=== PATIENT | male | born 1935 | race Two or more races ===

== ENCOUNTER 2021-04-11 04:04 | Inpatient (IN) | payer OTHER, MEDICAID ==
[~2021-04-11] VITALS: Ht 175.3 cm; Wt 85.9 kg
[2021-04-11 04:53] LABS: Basophils # (auto) 0 10 ^3/uL (0-0.2); Eosinophils # (auto) 0.1 10 ^3/uL (0-0.8); Eosinophils % (auto) 0.6 % (0.0-7.0); Mean Corpuscular Hgb Conc. 34.8 g/dL (32.0-36.0); Nucleated Red Blood Cells % 0.1 %; Red Cell Distribution Width 14.3 % (11.8-14.3)
[2021-04-11 04:56] LABS: Basophils % (auto) 0.4 % (0.0-2.0); Hematocrit 18.7 % (41.0-53.0); Lymphocytes % (auto) 32.8 % (10.0-50.0); Mean Corpuscular Hemoglobin 34.2 pg (28.0-32.0); Mean Corpuscular Volume 98.2 fL (80.0-100.0); Monocytes # (auto) 0.6 10 ^3/uL (0-1.3); Monocytes % (auto) 6.7 % (0.0-12.0); Neutrophils # (auto) 5.5 10 ^3/uL (1.6-8.6); Neutrophils % (auto) 59.5 % (37.0-80.0); Red Blood Cells 1.91 10^6/uL (4.5-5.90); White Blood Cell 9.2 10^3/uL (4.4-10.8)
[2021-04-11 05:06] LABS: Hemoglobin 6.5 g/dL (13.5-17.5)
[2021-04-11] MEDS ORDERED: SODIUM CHLORIDE 0.9% 1,000 ML IV ONE ×2 (05:15→12:30)
[2021-04-11 05:33] LABS: Alanine Aminotransferase 9 U/L (16-61); Albumin 1.7 g/dL (3.4-5.0); Anion Gap 7 (5-15); Aspartate Aminotransferase 15 U/L (15-37); BUN/Creatinine Ratio 22.2; Blood Urea Nitrogen 42 mg/dL (7-18); Calcium 7.4 mg/dL (8.5-10.1); Carbon Dioxide 22 mmol/L (21-32); Chloride 107 mmol/L (98-107); GFR African American 44 mL/min; GFR Non-African American 36 mL/min; Glucose 208 mg/dL (74-106); Potassium 4.3 mmol/L (3.5-5.1); Sodium 136 mmol/L (136-145)
[2021-04-11 05:38] LABS: Alkaline Phosphatase 64 U/L (45-117); Bilirubin, Total 0.3 mg/dL (0.2-1.0); Total Protein 5.5 g/dL (6.4-8.2)
[2021-04-11 08:15] VITALS: BP 117/63
[2021-04-11 09:04] VITALS: BP 133/74
[2021-04-11 09:30] VITALS: BP 125/71
[2021-04-11 10:15] VITALS: BP 152/86
[2021-04-11 10:54] LABS: Urine Bacteria NONE SEEN /hpf (None Seen); Urine Blood Negative /uL (Negative); Urine Specific Gravity 1.016 (1.001-1.035); Urine WBC 2 /hpf (0 - 3)
[2021-04-11] MEDS ORDERED: SODIUM CHLORIDE 0.9% 500 ML IVB ONE (12:30)
[2021-04-11 13:16] LABS: Magnesium 1.9 mg/dL (1.6-2.6)
[2021-04-11 13:22] LABS: INR 1.27 (0.9-1.15); Partial Thromboplastin Time 27.1 sec (23.6-33.0)
[2021-04-11] MEDS ORDERED: MORPHINE SULFATE INJECTION 2 MG/ML SYRG IV PRN (15:30)
[2021-04-11] MEDS ORDERED: PANTOPRAZOLE 40 MG/10 ML VIAL INJ IV ONE (15:30)
[2021-04-11] MEDS ORDERED: LACTULOSE 20Gm/30ML SOLN PO PRN (15:30)
[2021-04-11] MEDS ORDERED: ONDANSETRON HCL 4 MG/2 ML VIAL IV PRN (15:30)
[2021-04-11] MEDS ORDERED: phytonadione 2.5 MG in SODIUM CHL 0.9% 50 ML IV ONE (15:30)
[2021-04-11] MEDS ORDERED: DEXTROSE (50%) 50ML SYRG IV PRN (15:30)
[2021-04-11] MEDS ORDERED: ACETAMINOPHEN 500 MG TAB PO PRN (15:30)
[2021-04-11] MEDS ORDERED: NITROGLYCERIN 0.4 MG SL TAB SL PRN (15:30)
[2021-04-11 15:46] LABS: Hematocrit 27.6 % (41.0-53.0); Hemoglobin 9.4 g/dL (13.5-17.5)
[2021-04-11] MEDS: ACCU-CHEK COMFORT CURVE STRIP VI SCH ×2 (16:43→22:25)
[2021-04-11] MEDS: InsuLIN REG 1unit/0.01ml Soln (100units/ml) SC SCH ×2 (16:43→22:25)
[2021-04-11] MEDS: SODIUM CHLORIDE 0.9% 1,000 ML IV SCH ×2 (16:44→23:42)
[2021-04-11 19:17] LABS: Hematocrit 28.4 % (41.0-53.0); Hemoglobin 9.8 g/dL (13.5-17.5)
[2021-04-11] MEDS: PANTOPRAZOLE 40 MG/10 ML VIAL INJ IV SCH (22:25)
[2021-04-12 01:35] LABS: Hematocrit 25.5 % (41.0-53.0); Hemoglobin 9.1 g/dL (13.5-17.5)
[2021-04-12] MEDS: InsuLIN REG 1unit/0.01ml Soln (100units/ml) SC SCH ×4 (06:34→22:00)
[2021-04-12] MEDS: ACCU-CHEK COMFORT CURVE STRIP VI SCH ×4 (06:34→23:02)
[2021-04-12 07:01] LABS: Basophils # (auto) 0 10 ^3/uL (0-0.2); Basophils % (auto) 0.4 % (0.0-2.0); Eosinophils # (auto) 0.1 10 ^3/uL (0-0.8); Eosinophils % (auto) 0.9 % (0.0-7.0); Hematocrit 26.4 % (41.0-53.0); Hemoglobin 9.3 g/dL (13.5-17.5); Lymphocytes # (auto) 1.4 10 ^3/uL (0.4-5.4); Lymphocytes % (auto) 17.1 % (10.0-50.0); Mean Corpuscular Hemoglobin 32.7 pg (28.0-32.0); Mean Corpuscular Hgb Conc. 35.2 g/dL (32.0-36.0); Mean Corpuscular Volume 92.9 fL (80.0-100.0); Monocytes # (auto) 0.5 10 ^3/uL (0-1.3); Monocytes % (auto) 6.1 % (0.0-12.0); Neutrophils # (auto) 6.4 10 ^3/uL (1.6-8.6); Neutrophils % (auto) 75.5 % (37.0-80.0); Nucleated Red Blood Cells % 0.1 %; Red Blood Cells 2.84 10^6/uL (4.5-5.90); Red Cell Distribution Width 16.2 % (11.8-14.3); White Blood Cell 8.5 10^3/uL (4.4-10.8)
[2021-04-12 07:23] LABS: Calcium 8.2 mg/dL (8.5-10.1); Potassium 4.8 mmol/L (3.5-5.1)
[2021-04-12] MEDS: SODIUM CHLORIDE 0.9% 1,000 ML IV SCH (07:30)
[2021-04-12 07:32] LABS: BUN/Creatinine Ratio 38.3; Bilirubin, Total 0.4 mg/dL (0.2-1.0)
[2021-04-12] MEDS: PANTOPRAZOLE 40 MG/10 ML VIAL INJ IV SCH ×2 (10:01→23:01)
[2021-04-12] MEDS: SOD CHL 0.45% 1,000 ML IV SCH ×2 (10:19→23:02)
[2021-04-12] MEDS ORDERED: LABETALOL HCL 5 MG/ML 4ML SYRINGE IV PRN (11:00)
[2021-04-12 16:00] VITALS: BP 154/57
[2021-04-12 17:00] VITALS: BP 156/89
[2021-04-12] MEDS: SUCRALFATE 1 GM/10 ML ORAL SUSP PO SCH ×2 (18:38→23:02)
[2021-04-12 22:00] VITALS: BP 126/92
[2021-04-13 05:00] VITALS: BP 116/76
[2021-04-13 05:57] LABS: Basophils # (auto) 0 10 ^3/uL (0-0.2); Eosinophils # (auto) 0.1 10 ^3/uL (0-0.8); Eosinophils % (auto) 1.3 % (0.0-7.0); Lymphocytes # (auto) 1.1 10 ^3/uL (0.4-5.4); Monocytes # (auto) 0.4 10 ^3/uL (0-1.3)
[2021-04-13 06:00] LABS: Basophils % (auto) 0.4 % (0.0-2.0); Hemoglobin 8.1 g/dL (13.5-17.5); Lymphocytes % (auto) 19.5 % (10.0-50.0); Mean Corpuscular Hemoglobin 32.9 pg (28.0-32.0); Mean Corpuscular Hgb Conc. 35.3 g/dL (32.0-36.0); Mean Corpuscular Volume 93.3 fL (80.0-100.0); Monocytes % (auto) 6.6 % (0.0-12.0); Neutrophils % (auto) 72.2 % (37.0-80.0); Red Blood Cells 2.47 10^6/uL (4.5-5.90); Red Cell Distribution Width 15.6 % (11.8-14.3); White Blood Cell 5.6 10^3/uL (4.4-10.8)
[2021-04-13] MEDS: ACCU-CHEK COMFORT CURVE STRIP VI SCH ×2 (06:10→12:48)
[2021-04-13] MEDS: InsuLIN REG 1unit/0.01ml Soln (100units/ml) SC SCH ×2 (06:10→11:30)
[2021-04-13] MEDS: SUCRALFATE 1 GM/10 ML ORAL SUSP PO SCH ×4 (06:10→21:00)
[2021-04-13 07:02] LABS: Potassium 3.9 mmol/L (3.5-5.1)
[2021-04-13 07:05] LABS: BUN/Creatinine Ratio 34.8
[2021-04-13] MEDS ORDERED: LIDOCAINE VISCOUS 2% 15ML UD ONE (08:34)
[2021-04-13] MEDS ORDERED: SODIUM CHLORIDE LOCK 10 ML ONE (08:34)
[2021-04-13] MEDS ORDERED: fentaNYL CITRATE 100 MCG/2 ML VL ONE (08:35)
[2021-04-13] MEDS ORDERED: diphenhdrAMINE HCL 50 MG/1 ML VL ONE (08:35)
[2021-04-13] MEDS ORDERED: MIDAZOLAM HCL 5 MG/ML-1ML VIAL ONE (08:35)
[2021-04-13 09:00] VITALS: BP 122/61
[2021-04-13] MEDS: PANTOPRAZOLE 40 MG/10 ML VIAL INJ IV SCH ×2 (09:44→21:00)
[2021-04-13] MEDS: SOD CHL 0.45% 1,000 ML IV SCH ×2 (12:49→15:01)
[2021-04-13 13:00] VITALS: BP 125/69
[2021-04-13 17:00] VITALS: BP 110/66
[2021-04-13 22:00] VITALS: BP 138/67
[2021-04-14 05:00] VITALS: BP 125/67
[2021-04-14 05:49] LABS: Hemoglobin 7.6 g/dL (13.5-17.5)
[2021-04-14 05:53] LABS: Hematocrit 21.4 % (41.0-53.0)
[2021-04-14] MEDS: SUCRALFATE 1 GM/10 ML ORAL SUSP PO SCH ×3 (06:05→17:44)
[2021-04-14] MEDS: SOD CHL 0.45% 1,000 ML IV SCH (06:06)
[2021-04-14 06:36] LABS: Calcium 7.9 mg/dL (8.5-10.1)
[2021-04-14] MEDS: PANTOPRAZOLE 40 MG/10 ML VIAL INJ IV SCH (09:36)
[2021-04-14] MEDS ORDERED: PANT40TA2 PO (12:59)
[2021-04-14] MEDS ORDERED: SUCR1TAB22 PO (12:59)
[2021-04-14] MEDS ORDERED: GEMF-19 PO (13:23)
[2021-04-14] MEDS ORDERED: VALS80TA44 PO (13:23)
[2021-04-14] MEDS ORDERED: SITA100T7 PO (13:23)
[2021-04-14 13:47] LABS: Hemoglobin 7.7 g/dL (13.5-17.5)
[2021-04-14 13:49] LABS: Hematocrit 22.3 % (41.0-53.0)
[2021-04-14 14:55] VITALS: BP 113/65
== END 2021-04-14 20:27 | disposition home health service (06) | DRG 377 ==
LOC: ER 04:04 → EDBD 04:04 → TELE 15:25 → TELE-WESTW 04-12 15:01
PROVIDERS: ADMIT Internal Medicine; ATTEND Internal Medicine
PROC: 30233N1 Transfusion of Nonautologous Red Blood Cells into Peripheral Vein, Percutaneous Approach (ICD-10-PCS; principal; 2021-04-11)
PROC: 0D9670Z Drainage of Stomach with Drainage Device, Via Natural or Artificial Opening (ICD-10-PCS; 2021-04-11)
PROC: 0DB68ZX Excision of Stomach, Via Natural or Artificial Opening Endoscopic, Diagnostic (ICD-10-PCS; 2021-04-13)
DX: K25.4 Chronic or unspecified gastric ulcer with hemorrhage (principal); N17.0 Acute kidney failure with tubular necrosis; D68.9 Coagulation defect, unspecified; D62 Acute posthemorrhagic anemia; K29.71 Gastritis, unspecified, with bleeding; I95.9 Hypotension, unspecified; N18.32 Chronic kidney disease, stage 3b; E78.5 Hyperlipidemia, unspecified; Z20.822 Contact with and (suspected) exposure to COVID-19; K20.90 Esophagitis, unspecified without bleeding; E86.0 Dehydration; I12.9 Hypertensive chronic kidney disease with stage 1 through stage 4 chronic kidney disease, or unspecified chronic kidney disease; E88.09 Other disorders of plasma-protein metabolism, not elsewhere classified; Z86.718 Personal history of other venous thrombosis and embolism
CPT/HCPCS: 36415; 43239; 71045; 74176; 80048; 80053; 80061; 81001; 82306; 82378; 82962; 83036; 83690; 83735; 84443; 84484; 85014; 85018; 85025; 85045; 85610; 85730; 86850; 86900; 86901; 86920; 87426; 93005; 96360; 96361; 97163; C9113; G0378; J1815; J2250; J3430; J3490

== ENCOUNTER 2021-04-15 21:07 | Inpatient (IN) | payer OTHER, MEDICAID ==
[~2021-04-15] VITALS: Ht 167.6 cm; Wt 77.2 kg
[~2021-04-15 21:07] MED LIST: GEMF-19 PO; PANT40TA2 PO; SITA100T7 PO; SUCR1TAB22 PO; VALS80TA44 PO
[2021-04-15] MEDS ORDERED: SODIUM CHLORIDE 0.9% 1,000 ML IV ONE (22:15)
[2021-04-15 22:25] LABS: Basophils # (auto) 0 10 ^3/uL (0-0.2); Eosinophils # (auto) 0.1 10 ^3/uL (0-0.8); Hematocrit 18.6 % (41.0-53.0); Lymphocytes # (auto) 1.2 10 ^3/uL (0.4-5.4); Monocytes # (auto) 0.5 10 ^3/uL (0-1.3)
[2021-04-15 22:26] LABS: Basophils % (auto) 0.6 % (0.0-2.0); Lymphocytes % (auto) 17.1 % (10.0-50.0); Mean Corpuscular Hemoglobin 32.8 pg (28.0-32.0); Mean Corpuscular Hgb Conc. 34.3 g/dL (32.0-36.0); Mean Corpuscular Volume 95.4 fL (80.0-100.0); Neutrophils % (auto) 74.3 % (37.0-80.0); Red Blood Cells 1.95 10^6/uL (4.5-5.90); Red Cell Distribution Width 15.7 % (11.8-14.3); White Blood Cell 6.8 10^3/uL (4.4-10.8)
[2021-04-15 22:34] LABS: Hemoglobin 6.4 g/dL (13.5-17.5)
[2021-04-15 22:40] LABS: INR 1.17 (0.9-1.15); Partial Thromboplastin Time 27.9 sec (23.6-33.0)
[2021-04-15 22:56] LABS: Albumin 1.6 g/dL (3.4-5.0); BUN/Creatinine Ratio 20.3; Calcium 7.3 mg/dL (8.5-10.1); Potassium 4.2 mmol/L (3.5-5.1)
[2021-04-15 23:35] LABS: Bilirubin, Total 0.2 mg/dL (0.2-1.0); Total Protein 5.1 g/dL (6.4-8.2)
[2021-04-16] VITALS (11 sets, daily range): BP systolic 77–135; BP diastolic 39–63
[2021-04-16] MEDS ORDERED: NITROGLYCERIN 0.4 MG SL TAB SL PRN (01:00)
[2021-04-16] MEDS ORDERED: MORPHINE SULFATE 4 MG/ML SYR/VIAL IV PRN (01:00)
[2021-04-16] MEDS ORDERED: ACETAMINOPHEN 325 MG TAB PO PRN (01:00)
[2021-04-16] MEDS ORDERED: ONDANSETRON HCL 4 MG/2 ML VIAL IV PRN (01:00)
[2021-04-16] MEDS ORDERED: DOCUSATE SOD 100 MG CAP PO PRN (01:00)
[2021-04-16] MEDS ORDERED: DEXTROSE (50%) 50ML SYRG IV PRN (01:00)
[2021-04-16] MEDS ORDERED: SODIUM CHLORIDE 0.9% 1,000 ML IV SCH (01:00)
[2021-04-16] MEDS ORDERED: MORPHINE SULFATE INJECTION 2 MG/ML SYRG IV PRN (01:00)
[2021-04-16] MEDS ORDERED: ALBUMIN 25% 50 ML IV ONE (01:00)
[2021-04-16] MEDS ORDERED: FUROSEMIDE 20 MG/2 ML VIAL IV ONE (01:15)
[2021-04-16 05:17] LABS: Urine Bacteria FEW /hpf (None Seen); Urine Blood 2+ /uL (Negative); Urine Hyaline Cast FEW /lpf (0 - 2); Urine Specific Gravity 1.015 (1.001-1.035); Urine WBC 16 /hpf (0 - 3)
[2021-04-16] MEDS ORDERED: SODIUM CHLORIDE 0.9% 500 ML IV ONE (06:15)
[2021-04-16] MEDS: SODIUM CHLORIDE 0.9% 1,000 ML IV SCH ×2 (07:00→23:25)
[2021-04-16] MEDS: ACCU-CHEK COMFORT CURVE STRIP VI SCH ×4 (07:40→21:28)
[2021-04-16] MEDS: InsuLIN REG 1unit/0.01ml Soln (100units/ml) SC SCH ×4 (07:40→21:27)
[2021-04-16 08:23] LABS: Mean Corpuscular Volume 96.1 fL (80.0-100.0); White Blood Cell 8.6 10^3/uL (4.4-10.8)
[2021-04-16 08:24] LABS: Hematocrit 17.5 % (41.0-53.0); Mean Corpuscular Hemoglobin 33.4 pg (28.0-32.0); Mean Corpuscular Hgb Conc. 34.8 g/dL (32.0-36.0); Red Blood Cells 1.82 10^6/uL (4.5-5.90); Red Cell Distribution Width 15.4 % (11.8-14.3)
[2021-04-16 08:38] LABS: Albumin 1.4 g/dL (3.4-5.0); Calcium 6.6 mg/dL (8.5-10.1); Potassium 4.4 mmol/L (3.5-5.1)
[2021-04-16 08:42] LABS: BUN/Creatinine Ratio 25.4; Bilirubin, Total 0.5 mg/dL (0.2-1.0); Total Protein 4.3 g/dL (6.4-8.2)
[2021-04-16 08:50] LABS: Hemoglobin 6.1 g/dL (13.5-17.5)
[2021-04-16 08:52] LABS: Band Neutrophils % (manual) 0; Basophils % (manual) 0 (0.0-2.0); Blast Cells 0; Eosinophils % (manual) 0 (0-7); Metamyelocytes % 0; Myelocytes % 0; Promyelocytes % 0; Reactive Lymphocytes 0
[2021-04-16] MEDS ORDERED: FAMOTIDINE (10MG/ML) 2ML VL IV SCH (10:00)
[2021-04-16 11:11] LABS: Lymphocytes % (manual) 37 (10.0-50.0); Monocytes % (manual) 3 (0-12)
[2021-04-16] MEDS: ASCORBIC ACID 500 MG TAB PO SCH ×2 (11:42→21:27)
[2021-04-16] MEDS: ZINC SULFATE 220mg CAP or TAB PO SCH (11:42)
[2021-04-16] MEDS: MULTIPLE VITAMIN TAB PO SCH (11:42)
[2021-04-16] MEDS ORDERED: PANTOPRAZOLE 40 MG/10 ML VIAL INJ IV ONE (14:30)
[2021-04-16] MEDS ORDERED: GOLYTELY 4L KIT PO ONE (14:45)
[2021-04-16] MEDS: SUCRALFATE 1 GM TAB PO SCH ×2 (18:00→21:27)
[2021-04-16] MEDS: PANTOPRAZOLE 40 MG/10 ML VIAL INJ IV SCH (21:27)
[2021-04-16] MEDS ORDERED: ATORVASTATIN 20 MG TAB PO SCH (22:00)
[2021-04-17 04:00] LABS: Hematocrit 24.3 % (41.0-53.0); Hemoglobin 8.5 g/dL (13.5-17.5); Mean Corpuscular Hemoglobin 32.4 pg (28.0-32.0); Mean Corpuscular Hgb Conc. 34.9 g/dL (32.0-36.0); Mean Corpuscular Volume 92.8 fL (80.0-100.0); Red Blood Cells 2.62 10^6/uL (4.5-5.90); Red Cell Distribution Width 14.8 % (11.8-14.3); White Blood Cell 6.6 10^3/uL (4.4-10.8)
[2021-04-17 04:16] LABS: Albumin 1.6 g/dL (3.4-5.0); Calcium 7.3 mg/dL (8.5-10.1); Magnesium 1.7 mg/dL (1.6-2.6); Potassium 3.7 mmol/L (3.5-5.1)
[2021-04-17 04:23] LABS: BUN/Creatinine Ratio 34.6; Bilirubin, Total 0.6 mg/dL (0.2-1.0); Total Protein 4.8 g/dL (6.4-8.2)
[2021-04-17] MEDS: SUCRALFATE 1 GM TAB PO SCH ×4 (05:57→22:09)
[2021-04-17] MEDS ORDERED: GOLYTELY 4L KIT PO ONE (06:00)
[2021-04-17 06:13] LABS: Basophils % (manual) 0 (0.0-2.0); Blast Cells 0; Eosinophils % (manual) 0 (0-7); Metamyelocytes % 0; Myelocytes % 0; Promyelocytes % 0; Reactive Lymphocytes 0
[2021-04-17] MEDS: InsuLIN REG 1unit/0.01ml Soln (100units/ml) SC SCH ×4 (06:35→22:30)
[2021-04-17] MEDS: ACCU-CHEK COMFORT CURVE STRIP VI SCH ×4 (06:35→22:09)
[2021-04-17] MEDS: PANTOPRAZOLE 40 MG/10 ML VIAL INJ IV SCH ×2 (09:48→22:09)
[2021-04-17] MEDS: ASCORBIC ACID 500 MG TAB PO SCH (09:48)
[2021-04-17] MEDS: MULTIPLE VITAMIN TAB PO SCH (09:48)
[2021-04-17] MEDS: ZINC SULFATE 220mg CAP or TAB PO SCH (09:48)
[2021-04-17 10:56] LABS: Band Neutrophils % (manual) 5; Lymphocytes % (manual) 26 (10.0-50.0); Monocytes % (manual) 9 (0-12)
[2021-04-17] MEDS ORDERED: cefTRIAXone 1GM/50ML D5W 50 ML IV ONE (11:00)
[2021-04-17] MEDS ORDERED: diphenhdrAMINE HCL 50 MG/1 ML VL ONE (12:51)
[2021-04-17] MEDS ORDERED: SODIUM CHLORIDE LOCK 10 ML ONE (12:51)
[2021-04-17] MEDS ORDERED: LIDOCAINE VISCOUS 2% 15ML UD ONE (12:51)
[2021-04-17] MEDS: MIDAZOLAM HCL 5 MG/ML-1ML VIAL ONE ×2 (13:51→14:01)
[2021-04-17] MEDS: fentaNYL CITRATE 100 MCG/2 ML VL ONE ×2 (13:51→14:01)
[2021-04-17] MEDS: SODIUM CHLORIDE 0.9% 1,000 ML IV SCH (17:38)
[2021-04-17 18:36] LABS: Hemoglobin 7.4 g/dL (13.5-17.5)
[2021-04-17 18:37] LABS: Hematocrit 21.5 % (41.0-53.0)
[2021-04-17 22:00] VITALS: BP 125/69
[2021-04-18] VITALS (10 sets, daily range): BP systolic 109–144; BP diastolic 52–65
[2021-04-18] MEDS: ACCU-CHEK COMFORT CURVE STRIP VI SCH ×4 (06:07→20:52)
[2021-04-18] MEDS: SUCRALFATE 1 GM TAB PO SCH ×4 (06:07→20:52)
[2021-04-18] MEDS: InsuLIN REG 1unit/0.01ml Soln (100units/ml) SC SCH ×4 (06:11→21:08)
[2021-04-18 08:17] LABS: Hematocrit 18.7 % (41.0-53.0); Mean Corpuscular Hemoglobin 32.8 pg (28.0-32.0); Mean Corpuscular Hgb Conc. 34.7 g/dL (32.0-36.0); Mean Corpuscular Volume 94.6 fL (80.0-100.0); Red Blood Cells 1.98 10^6/uL (4.5-5.90); Red Cell Distribution Width 15.6 % (11.8-14.3); White Blood Cell 5.5 10^3/uL (4.4-10.8)
[2021-04-18 08:36] LABS: Calcium 7.5 mg/dL (8.5-10.1); Potassium 3.8 mmol/L (3.5-5.1)
[2021-04-18 08:39] LABS: BUN/Creatinine Ratio 43.6
[2021-04-18 08:55] LABS: Hemoglobin 6.5 g/dL (13.5-17.5)
[2021-04-18 08:57] LABS: Basophils % (manual) 0 (0.0-2.0); Blast Cells 0; Metamyelocytes % 0; Promyelocytes % 0; Reactive Lymphocytes 0
[2021-04-18] MEDS: PANTOPRAZOLE 40 MG/10 ML VIAL INJ IV SCH ×2 (09:26→20:52)
[2021-04-18] MEDS: SODIUM CHLORIDE 0.9% 1,000 ML IV SCH (09:26)
[2021-04-18] MEDS: ZINC SULFATE 220mg CAP or TAB PO SCH (09:27)
[2021-04-18] MEDS: MULTIPLE VITAMIN TAB PO SCH (09:27)
[2021-04-18] MEDS: HYDROcodone-ACET 5/325MG TAB PO PRN ×2 (09:35→16:25)
[2021-04-18 10:03] LABS: Band Neutrophils % (manual) 2; Eosinophils % (manual) 1 (0-7); Lymphocytes % (manual) 25 (10.0-50.0); Monocytes % (manual) 4 (0-12); Myelocytes % 1
[2021-04-18] MEDS: cefTRIAXone 1GM/50ML D5W 50 ML IV SCH (10:37)
[2021-04-19] MEDS: SODIUM CHLORIDE 0.9% 1,000 ML IV SCH (01:25)
[2021-04-19 05:33] VITALS: BP 154/70
[2021-04-19] MEDS: ACCU-CHEK COMFORT CURVE STRIP VI SCH ×4 (05:35→20:31)
[2021-04-19] MEDS: InsuLIN REG 1unit/0.01ml Soln (100units/ml) SC SCH ×4 (05:35→20:31)
[2021-04-19] MEDS: SUCRALFATE 1 GM TAB PO SCH ×4 (05:36→20:31)
[2021-04-19 06:39] LABS: Hematocrit 21.7 % (41.0-53.0); Hemoglobin 7.6 g/dL (13.5-17.5); Mean Corpuscular Hgb Conc. 35.2 g/dL (32.0-36.0); Red Blood Cells 2.32 10^6/uL (4.5-5.90); Red Cell Distribution Width 15.7 % (11.8-14.3); White Blood Cell 4.4 10^3/uL (4.4-10.8)
[2021-04-19 06:41] LABS: Mean Corpuscular Hemoglobin 32.8 pg (28.0-32.0); Mean Corpuscular Volume 93.4 fL (80.0-100.0)
[2021-04-19 06:45] LABS: Band Neutrophils % (manual) 0; Basophils % (manual) 0 (0.0-2.0); Blast Cells 0; Metamyelocytes % 0; Myelocytes % 0; Promyelocytes % 0; Reactive Lymphocytes 0
[2021-04-19 08:37] LABS: Eosinophils % (manual) 2 (0-7); Lymphocytes % (manual) 32 (10.0-50.0); Monocytes % (manual) 5 (0-12)
[2021-04-19 09:00] VITALS: BP 155/69
[2021-04-19] MEDS: PANTOPRAZOLE 40 MG/10 ML VIAL INJ IV SCH ×2 (09:44→20:31)
[2021-04-19] MEDS: MULTIPLE VITAMIN TAB PO SCH (09:44)
[2021-04-19] MEDS: ZINC SULFATE 220mg CAP or TAB PO SCH (09:44)
[2021-04-19] MEDS: cefTRIAXone 1GM/50ML D5W 50 ML IV SCH (09:44)
[2021-04-19] MEDS: HYDROcodone-ACET 5/325MG TAB PO PRN (11:35)
[2021-04-19 13:00] VITALS: BP 135/61
[2021-04-19 17:00] VITALS: BP 135/44
[2021-04-19 22:00] VITALS: BP 138/60
[2021-04-20 05:00] VITALS: BP 146/79
[2021-04-20] MEDS: SUCRALFATE 1 GM TAB PO SCH ×4 (05:51→22:03)
[2021-04-20] MEDS: ACCU-CHEK COMFORT CURVE STRIP VI SCH ×4 (05:51→22:03)
[2021-04-20 06:17] LABS: Hematocrit 21.2 % (41.0-53.0); Hemoglobin 7.5 g/dL (13.5-17.5); Mean Corpuscular Hgb Conc. 35.5 g/dL (32.0-36.0)
[2021-04-20 06:20] LABS: Mean Corpuscular Hemoglobin 33.4 pg (28.0-32.0); Red Blood Cells 2.26 10^6/uL (4.5-5.90); Red Cell Distribution Width 16.1 % (11.8-14.3); White Blood Cell 3.7 10^3/uL (4.4-10.8)
[2021-04-20 06:23] LABS: BUN/Creatinine Ratio 25.2; Calcium 7.9 mg/dL (8.5-10.1); Potassium 3.8 mmol/L (3.5-5.1)
[2021-04-20 06:30] LABS: INR 1.16 (0.9-1.15)
[2021-04-20 06:36] LABS: Basophils % (manual) 0 (0.0-2.0); Blast Cells 0; Promyelocytes % 0; Reactive Lymphocytes 0
[2021-04-20] MEDS: InsuLIN REG 1unit/0.01ml Soln (100units/ml) SC SCH ×4 (06:50→22:00)
[2021-04-20 07:54] LABS: Band Neutrophils % (manual) 2; Eosinophils % (manual) 4 (0-7); Lymphocytes % (manual) 31 (10.0-50.0); Metamyelocytes % 2; Monocytes % (manual) 7 (0-12); Myelocytes % 1
[2021-04-20 09:00] VITALS: BP 149/77
[2021-04-20] MEDS: cefTRIAXone 1GM/50ML D5W 50 ML IV SCH (09:00)
[2021-04-20] MEDS: MULTIPLE VITAMIN TAB PO SCH (09:41)
[2021-04-20] MEDS: PANTOPRAZOLE 40 MG/10 ML VIAL INJ IV SCH ×2 (09:41→22:03)
[2021-04-20] MEDS: ZINC SULFATE 220mg CAP or TAB PO SCH (09:41)
[2021-04-20] MEDS ORDERED: VALSARTAN 80 MG TAB PO ONE (12:30)
[2021-04-20] MEDS ORDERED: hydrALAZINE HCL 20 MG/ML VL IV PRN (12:30)
[2021-04-20] MEDS ORDERED: DEXTROSE (50%) 50ML SYRG IV PRN (12:30)
[2021-04-20 13:00] VITALS: BP 135/58
[2021-04-20 17:00] VITALS: BP 127/58
[2021-04-20 22:00] VITALS: BP 152/68
[2021-04-21 05:00] VITALS: BP 98/70
[2021-04-21] MEDS: SUCRALFATE 1 GM TAB PO SCH ×3 (05:53→17:38)
[2021-04-21] MEDS: ACCU-CHEK COMFORT CURVE STRIP VI SCH ×3 (05:53→17:00)
[2021-04-21] MEDS: InsuLIN REG 1unit/0.01ml Soln (100units/ml) SC SCH ×3 (06:03→17:32)
[2021-04-21 06:20] LABS: Hematocrit 27.6 % (41.0-53.0); Hemoglobin 8.5 g/dL (13.5-17.5)
[2021-04-21 09:00] VITALS: BP 154/96
[2021-04-21] MEDS: PANTOPRAZOLE 40 MG/10 ML VIAL INJ IV SCH (09:33)
[2021-04-21] MEDS: cefTRIAXone 1GM/50ML D5W 50 ML IV SCH (09:33)
[2021-04-21] MEDS: ZINC SULFATE 220mg CAP or TAB PO SCH (09:34)
[2021-04-21] MEDS: MULTIPLE VITAMIN TAB PO SCH (09:35)
[2021-04-21] MEDS ORDERED: VALSARTAN 80 MG TAB PO SCH (10:00)
[2021-04-21 13:00] VITALS: BP 135/63
[2021-04-21] MEDS ORDERED: SUCR1TAB22 PO (16:00)
[2021-04-21] MEDS ORDERED: PANT40TA2 PO (16:00)
[2021-04-21 16:34] VITALS: BP 112/49
[2021-04-21 17:42] VITALS: BP 112/49
== END 2021-04-21 18:31 | disposition home or self-care (01) | DRG 377 ==
LOC: EDBD 21:07 → ER 21:07 → TELE 04-16 00:54 → TELE-CENTR 04-17 13:08
PROVIDERS: ADMIT Nurse Practitioner Family; ATTEND Internal Medicine
PROC: 30233N1 Transfusion of Nonautologous Red Blood Cells into Peripheral Vein, Percutaneous Approach (ICD-10-PCS; 2021-04-16)
PROC: 0W3P8ZZ Control Bleeding in Gastrointestinal Tract, Via Natural or Artificial Opening Endoscopic (ICD-10-PCS; principal; 2021-04-17 13:48)
PROC: 05HB33Z Insertion of Infusion Device into Right Basilic Vein, Percutaneous Approach (ICD-10-PCS; 2021-04-19)
PROC: B54MZZA Ultrasonography of Right Upper Extremity Veins, Guidance (ICD-10-PCS; 2021-04-19)
DX: K25.4 Chronic or unspecified gastric ulcer with hemorrhage (principal); N17.0 Acute kidney failure with tubular necrosis; N39.0 Urinary tract infection, site not specified; I95.9 Hypotension, unspecified; E88.09 Other disorders of plasma-protein metabolism, not elsewhere classified; E78.5 Hyperlipidemia, unspecified; I12.9 Hypertensive chronic kidney disease with stage 1 through stage 4 chronic kidney disease, or unspecified chronic kidney disease; N18.32 Chronic kidney disease, stage 3b; Z20.822 Contact with and (suspected) exposure to COVID-19; G89.29 Other chronic pain; M54.9 Dorsalgia, unspecified; R55 Syncope and collapse; R73.03 Prediabetes; R73.9 Hyperglycemia, unspecified; Z86.718 Personal history of other venous thrombosis and embolism; D50.0 Iron deficiency anemia secondary to blood loss (chronic)
CPT/HCPCS: 36415; 36430; 43255; 80048; 80053; 80061; 81001; 82270; 82962; 83735; 84132; 85007; 85014; 85018; 85025; 85027; 85610; 85730; 86850; 86900; 86901; 86920; 87081; 87086; 87426; 93005; 96361; 96365; 96367; 96375; 97163; C9113; G0378; J0696; J1815; J2250; J3490

== ENCOUNTER 2021-04-27 15:30 | Inpatient (IN) | payer OTHER, MEDICAID ==
[~2021-04-27] VITALS: Ht 170.2 cm; Wt 76.2 kg
[2021-04-27 16:02] LABS: Basophils # (auto) 0 10 ^3/uL (0-0.2); Basophils % (auto) 0.7 % (0.0-2.0); Eosinophils # (auto) 0.1 10 ^3/uL (0-0.8); Eosinophils % (auto) 1.4 % (0.0-7.0); Lymphocytes # (auto) 1.3 10 ^3/uL (0.4-5.4); Monocytes # (auto) 0.4 10 ^3/uL (0-1.3)
[2021-04-27 16:05] LABS: Hematocrit 20.8 % (41.0-53.0); Lymphocytes % (auto) 29.8 % (10.0-50.0); Mean Corpuscular Hemoglobin 32.6 pg (28.0-32.0); Mean Corpuscular Hgb Conc. 33.5 g/dL (32.0-36.0); Mean Corpuscular Volume 97.4 fL (80.0-100.0); Monocytes % (auto) 8.9 % (0.0-12.0); Neutrophils # (auto) 2.5 10 ^3/uL (1.6-8.6); Neutrophils % (auto) 59.2 % (37.0-80.0); Red Blood Cells 2.13 10^6/uL (4.5-5.90); Red Cell Distribution Width 18.6 % (11.8-14.3); White Blood Cell 4.3 10^3/uL (4.4-10.8)
[2021-04-27 16:18] LABS: INR 1.13 (0.9-1.15); Partial Thromboplastin Time 26.6 sec (23.6-33.0)
[2021-04-27 16:23] LABS: Alanine Aminotransferase 16 U/L (16-61); Albumin 1.9 g/dL (3.4-5.0); Anion Gap 6 (5-15); Aspartate Aminotransferase 22 U/L (15-37); BUN/Creatinine Ratio 12.9; Blood Urea Nitrogen 18 mg/dL (7-18); Calcium 7.5 mg/dL (8.5-10.1); Carbon Dioxide 22 mmol/L (21-32); Chloride 112 mmol/L (98-107); GFR African American 62 mL/min; GFR Non-African American 51 mL/min; Glucose 146 mg/dL (74-106); Potassium 3.9 mmol/L (3.5-5.1); Sodium 140 mmol/L (136-145)
[2021-04-27 16:27] LABS: Alkaline Phosphatase 175 U/L (45-117); Bilirubin, Total 0.2 mg/dL (0.2-1.0); Total Protein 5.7 g/dL (6.4-8.2)
[2021-04-27] MEDS ORDERED: hydrALAZINE HCL 20 MG/ML VL IV PRN (23:00)
[2021-04-27] MEDS ORDERED: DEXTROSE (50%) 50ML SYRG IV PRN (23:00)
[2021-04-27] MEDS ORDERED: ONDANSETRON HCL 4 MG/2 ML VIAL IV PRN (23:00)
[2021-04-28] MEDS: InsuLIN REG 1unit/0.01ml Soln (100units/ml) SC SCH ×5 (01:11→23:08)
[2021-04-28] MEDS: ACCU-CHEK COMFORT CURVE STRIP VI SCH ×5 (01:11→23:08)
[2021-04-28 01:45] VITALS: BP 156/82
[2021-04-28 02:00] VITALS: BP 148/52
[2021-04-28] MEDS: SODIUM CHLORIDE 0.9% 1,000 ML IV SCH ×2 (02:06→12:20)
[2021-04-28 05:02] LABS: Basophils # (auto) 0 10 ^3/uL (0-0.2); Basophils % (auto) 1.1 % (0.0-2.0); Eosinophils # (auto) 0.1 10 ^3/uL (0-0.8); Monocytes # (auto) 0.4 10 ^3/uL (0-1.3); Neutrophils # (auto) 2.4 10 ^3/uL (1.6-8.6); Nucleated Red Blood Cells % 0.2 %; White Blood Cell 3.9 10^3/uL (4.4-10.8)
[2021-04-28 05:04] LABS: Eosinophils % (auto) 2.4 % (0.0-7.0); Hematocrit 21.7 % (41.0-53.0); Hemoglobin 7.3 g/dL (13.5-17.5); Lymphocytes % (auto) 25.6 % (10.0-50.0); Mean Corpuscular Hemoglobin 32.8 pg (28.0-32.0); Mean Corpuscular Hgb Conc. 33.9 g/dL (32.0-36.0); Mean Corpuscular Volume 96.8 fL (80.0-100.0); Monocytes % (auto) 9.8 % (0.0-12.0); Neutrophils % (auto) 61.1 % (37.0-80.0); Red Blood Cells 2.24 10^6/uL (4.5-5.90); Red Cell Distribution Width 17.6 % (11.8-14.3)
[2021-04-28 05:17] LABS: Albumin 1.5 g/dL (3.4-5.0); Potassium 3.4 mmol/L (3.5-5.1)
[2021-04-28 05:19] LABS: BUN/Creatinine Ratio 13.3
[2021-04-28 05:22] LABS: Bilirubin, Total 0.8 mg/dL (0.2-1.0); Total Protein 4.9 g/dL (6.4-8.2)
[2021-04-28] MEDS: PANTOPRAZOLE 40 MG/10 ML VIAL INJ IV SCH ×2 (10:14→22:12)
[2021-04-28] MEDS ORDERED: POTASSIUM EFFERVESENT TAB 25 MEQ PO ONE (12:00)
[2021-04-28 12:21] LABS: Basophils # (auto) 0 10 ^3/uL (0-0.2); Basophils % (auto) 0.8 % (0.0-2.0); Eosinophils # (auto) 0.1 10 ^3/uL (0-0.8); Eosinophils % (auto) 1.7 % (0.0-7.0); Hematocrit 25.2 % (41.0-53.0); Hemoglobin 8.7 g/dL (13.5-17.5); Lymphocytes # (auto) 0.9 10 ^3/uL (0.4-5.4); Lymphocytes % (auto) 23.7 % (10.0-50.0); Mean Corpuscular Hgb Conc. 34.5 g/dL (32.0-36.0); Mean Corpuscular Volume 95.5 fL (80.0-100.0); Monocytes # (auto) 0.3 10 ^3/uL (0-1.3); Monocytes % (auto) 8.1 % (0.0-12.0); Neutrophils # (auto) 2.5 10 ^3/uL (1.6-8.6); Neutrophils % (auto) 65.7 % (37.0-80.0); Red Blood Cells 2.64 10^6/uL (4.5-5.90); Red Cell Distribution Width 17.4 % (11.8-14.3); White Blood Cell 3.8 10^3/uL (4.4-10.8)
[2021-04-28 22:00] VITALS: BP 150/84
[2021-04-29 05:00] VITALS: BP 155/69
[2021-04-29] MEDS: InsuLIN REG 1unit/0.01ml Soln (100units/ml) SC SCH ×2 (05:40→17:53)
[2021-04-29] MEDS: ACCU-CHEK COMFORT CURVE STRIP VI SCH ×2 (05:41→17:45)
[2021-04-29 06:22] LABS: Basophils # (auto) 0 10 ^3/uL (0-0.2); Basophils % (auto) 1.1 % (0.0-2.0); Eosinophils # (auto) 0.1 10 ^3/uL (0-0.8); Eosinophils % (auto) 2.2 % (0.0-7.0); Hemoglobin 8.5 g/dL (13.5-17.5); Lymphocytes # (auto) 0.9 10 ^3/uL (0.4-5.4); Lymphocytes % (auto) 23.8 % (10.0-50.0); Mean Corpuscular Hemoglobin 32.3 pg (28.0-32.0); Mean Corpuscular Hgb Conc. 34.1 g/dL (32.0-36.0); Mean Corpuscular Volume 94.7 fL (80.0-100.0); Monocytes # (auto) 0.4 10 ^3/uL (0-1.3); Monocytes % (auto) 10.3 % (0.0-12.0); Neutrophils # (auto) 2.4 10 ^3/uL (1.6-8.6); Neutrophils % (auto) 62.6 % (37.0-80.0); Nucleated Red Blood Cells % 0.1 %; Red Blood Cells 2.64 10^6/uL (4.5-5.90); Red Cell Distribution Width 16.9 % (11.8-14.3); White Blood Cell 3.8 10^3/uL (4.4-10.8)
[2021-04-29 09:00] VITALS: BP 149/62
[2021-04-29] MEDS ORDERED: diphenhdrAMINE HCL 50 MG/1 ML VL ONE (09:44)
[2021-04-29] MEDS ORDERED: fentaNYL CITRATE 100 MCG/2 ML VL ONE (09:44)
[2021-04-29] MEDS ORDERED: LIDOCAINE VISCOUS 2% 15ML UD ONE (09:44)
[2021-04-29] MEDS ORDERED: MIDAZOLAM HCL 5 MG/ML-1ML VIAL ONE (09:44)
[2021-04-29] MEDS ORDERED: SODIUM FERR GLUC 62.5MG/5ML 125 MG in SODIUM CHL 0.9% 100 ML IV ONE (12:00)
[2021-04-29 12:46] VITALS: BP 149/70
[2021-04-29] MEDS: SUCRALFATE 1 GM/10 ML ORAL SUSP PO SCH (17:00)
[2021-04-29] MEDS ORDERED: GOLYTELY 4L KIT PO ONE (17:15)
[2021-04-29 17:37] VITALS: BP 151/72
[2021-04-29 22:00] VITALS: BP 161/85
[2021-04-30] MEDS: SUCRALFATE 1 GM/10 ML ORAL SUSP PO SCH ×4 (01:26→17:24)
[2021-04-30] MEDS: PANTOPRAZOLE 40 MG TAB PO SCH ×2 (01:26→10:00)
[2021-04-30 05:00] VITALS: BP 149/80
[2021-04-30] MEDS: InsuLIN REG 1unit/0.01ml Soln (100units/ml) SC SCH ×4 (06:00→18:00)
[2021-04-30] MEDS ORDERED: GOLYTELY 4L KIT PO ONE ×2 (06:00→09:45)
[2021-04-30 06:16] LABS: Basophils # (auto) 0 10 ^3/uL (0-0.2); Eosinophils # (auto) 0.1 10 ^3/uL (0-0.8); Hemoglobin 8.4 g/dL (13.5-17.5); Lymphocytes # (auto) 1.1 10 ^3/uL (0.4-5.4); Monocytes # (auto) 0.4 10 ^3/uL (0-1.3); Nucleated Red Blood Cells % 0.1 %
[2021-04-30 06:21] LABS: Basophils % (auto) 0.6 % (0.0-2.0); Eosinophils % (auto) 1.8 % (0.0-7.0); Hematocrit 24.1 % (41.0-53.0); Lymphocytes % (auto) 19.5 % (10.0-50.0); Mean Corpuscular Hemoglobin 32.9 pg (28.0-32.0); Mean Corpuscular Hgb Conc. 34.7 g/dL (32.0-36.0); Mean Corpuscular Volume 94.8 fL (80.0-100.0); Monocytes % (auto) 6.6 % (0.0-12.0); Neutrophils # (auto) 3.9 10 ^3/uL (1.6-8.6); Neutrophils % (auto) 71.5 % (37.0-80.0); Red Blood Cells 2.54 10^6/uL (4.5-5.90); Red Cell Distribution Width 16.7 % (11.8-14.3); White Blood Cell 5.5 10^3/uL (4.4-10.8)
[2021-04-30 06:27] LABS: Potassium 3.2 mmol/L (3.5-5.1)
[2021-04-30 06:33] LABS: BUN/Creatinine Ratio 9.6; Calcium 7.5 mg/dL (8.5-10.1)
[2021-04-30] MEDS: ACCU-CHEK COMFORT CURVE STRIP VI SCH ×4 (06:37→18:49)
[2021-04-30 08:00] VITALS: BP 133/48
[2021-04-30] MEDS ORDERED: SODIUM CHLORIDE LOCK 10 ML ONE (08:21)
[2021-04-30] MEDS ORDERED: MIDAZOLAM HCL 5 MG/ML-1ML VIAL ONE (08:21)
[2021-04-30] MEDS ORDERED: diphenhdrAMINE HCL 50 MG/1 ML VL ONE (08:22)
[2021-04-30] MEDS ORDERED: fentaNYL CITRATE 100 MCG/2 ML VL ONE (08:22)
[2021-04-30 12:00] VITALS: BP 149/66
[2021-04-30] MEDS ORDERED: SODIUM FERR GLUC 62.5MG/5ML 125 MG in SODIUM CHL 0.9% 100 ML IV SCH (12:00)
[2021-04-30] MEDS: POTASSIUM CHL 20MEQ/100ML 100 ML IV SCH ×2 (13:30→15:30)
[2021-04-30] MEDS ORDERED: POTASSIUM EFFERVESENT TAB 25 MEQ PO ONE (13:30)
[2021-04-30 16:00] VITALS: BP 126/85
[2021-04-30 22:29] VITALS: BP 164/73
[2021-05-01] MEDS: SUCRALFATE 1 GM/10 ML ORAL SUSP PO SCH ×5 (00:34→22:00)
[2021-05-01] MEDS: PANTOPRAZOLE 40 MG TAB PO SCH ×3 (00:34→22:00)
[2021-05-01] MEDS: ACCU-CHEK COMFORT CURVE STRIP VI SCH ×4 (00:35→17:50)
[2021-05-01 05:43] VITALS: BP 168/70
[2021-05-01] MEDS: InsuLIN REG 1unit/0.01ml Soln (100units/ml) SC SCH ×4 (06:00→17:50)
[2021-05-01 08:00] VITALS: BP 154/64
[2021-05-01] MEDS ORDERED: SODIUM CHLORIDE LOCK 10 ML ONE (09:16)
[2021-05-01] MEDS ORDERED: MIDAZOLAM HCL 5 MG/ML-1ML VIAL ONE (09:16)
[2021-05-01] MEDS ORDERED: fentaNYL CITRATE 100 MCG/2 ML VL ONE (09:17)
[2021-05-01] MEDS ORDERED: diphenhdrAMINE HCL 50 MG/1 ML VL ONE (09:17)
[2021-05-01] MEDS ORDERED: NALOXONE HCL 0.4 MG/ML VIAL ONE (09:18)
[2021-05-01] MEDS ORDERED: FLUMAZENIL 0.1 MG/ML INJ 10ML MDV IV ONE (09:18)
[2021-05-01 12:00] VITALS: BP 150/73
[2021-05-01 17:00] VITALS: BP 151/69
[2021-05-01 22:00] VITALS: BP 166/74
[2021-05-02 05:00] VITALS: BP 141/81
[2021-05-02 05:53] LABS: Basophils # (auto) 0 10 ^3/uL (0-0.2); Basophils % (auto) 0.7 % (0.0-2.0); Eosinophils # (auto) 0.1 10 ^3/uL (0-0.8); Eosinophils % (auto) 2.1 % (0.0-7.0); Hematocrit 23.5 % (41.0-53.0); Hemoglobin 8.2 g/dL (13.5-17.5); Lymphocytes # (auto) 1.3 10 ^3/uL (0.4-5.4); Lymphocytes % (auto) 32.1 % (10.0-50.0); Mean Corpuscular Hemoglobin 33.2 pg (28.0-32.0); Mean Corpuscular Hgb Conc. 35.1 g/dL (32.0-36.0); Mean Corpuscular Volume 94.8 fL (80.0-100.0); Monocytes # (auto) 0.3 10 ^3/uL (0-1.3); Neutrophils # (auto) 2.3 10 ^3/uL (1.6-8.6); Neutrophils % (auto) 57.1 % (37.0-80.0); Red Blood Cells 2.48 10^6/uL (4.5-5.90); Red Cell Distribution Width 16.3 % (11.8-14.3)
[2021-05-02] MEDS: InsuLIN REG 1unit/0.01ml Soln (100units/ml) SC SCH ×3 (06:00→11:50)
[2021-05-02 06:14] LABS: BUN/Creatinine Ratio 8.1; Calcium 7.3 mg/dL (8.5-10.1); Potassium 3.7 mmol/L (3.5-5.1)
[2021-05-02] MEDS: ACCU-CHEK COMFORT CURVE STRIP VI SCH ×3 (06:58→11:43)
[2021-05-02] MEDS: SUCRALFATE 1 GM/10 ML ORAL SUSP PO SCH ×2 (07:06→11:43)
[2021-05-02 08:00] VITALS: BP 126/60
[2021-05-02 08:50] VITALS: BP 126/60
[2021-05-02] MEDS: PANTOPRAZOLE 40 MG TAB PO SCH (09:41)
[2021-05-02] MEDS ORDERED: SUCR1TAB22 PO (10:32)
[2021-05-02] MEDS ORDERED: OMEP-263 PO (10:32)
[2021-05-02 12:04] VITALS: BP 126/60
[2021-05-02 12:19] VITALS: BP 124/60
== END 2021-05-02 14:21 | disposition home or self-care (01) | DRG 393 ==
LOC: ER 15:30 → OVERFLOW 22:48 → WEST WING 04-28 21:20
PROVIDERS: ADMIT Nurse Practitioner; ATTEND Internal Medicine
PROC: 30233N1 Transfusion of Nonautologous Red Blood Cells into Peripheral Vein, Percutaneous Approach (ICD-10-PCS; 2021-04-28)
PROC: 0DJ08ZZ Inspection of Upper Intestinal Tract, Via Natural or Artificial Opening Endoscopic (ICD-10-PCS; principal; 2021-04-29 14:15)
PROC: 0DJD8ZZ Inspection of Lower Intestinal Tract, Via Natural or Artificial Opening Endoscopic (ICD-10-PCS; 2021-04-30)
PROC: 0DJD8ZZ Inspection of Lower Intestinal Tract, Via Natural or Artificial Opening Endoscopic (ICD-10-PCS; 2021-05-01)
DX: K64.8 Other hemorrhoids (principal); E43 Unspecified severe protein-calorie malnutrition; D62 Acute posthemorrhagic anemia; N17.9 Acute kidney failure, unspecified; E11.21 Type 2 diabetes mellitus with diabetic nephropathy; Z20.822 Contact with and (suspected) exposure to COVID-19; I10 Essential (primary) hypertension; E78.5 Hyperlipidemia, unspecified; E87.6 Hypokalemia; K25.7 Chronic gastric ulcer without hemorrhage or perforation; E78.00 Pure hypercholesterolemia, unspecified; I70.0 Atherosclerosis of aorta; K57.30 Diverticulosis of large intestine without perforation or abscess without bleeding; R97.0 Elevated carcinoembryonic antigen [CEA]; Z82.49 Family history of ischemic heart disease and other diseases of the circulatory system; Z83.3 Family history of diabetes mellitus; Z68.26 Body mass index [BMI] 26.0-26.9, adult; Z79.84 Long term (current) use of oral hypoglycemic drugs
CPT/HCPCS: 36415; 43235; 45378; 71045; 80048; 80053; 82962; 83615; 83880; 84484; 85025; 85045; 85610; 85730; 86850; 86880; 86900; 86901; 86920; 87081; 87426; 93005; 96374; 99291; C9113; G0378; J1815; J2250; J2405; J3480

== ENCOUNTER 2022-03-14 14:14 | Inpatient (IN) | payer OTHER, MEDICAID ==
[~2022-03-14] VITALS: Ht 162.6 cm; Wt 112.3 kg
[2022-03-14] MEDS: SODIUM BICARBONATE 50ML VIAL 150 ML in D5W 5% 1,000 ML IV SCH (04:00)
[~2022-03-14 14:14] MED LIST changes: +OMEP-263 PO; -PANT40TA2 PO
[2022-03-14] MEDS ORDERED: SODIUM CHLORIDE 0.9% 1,000 ML IV ONE ×2 (15:00→16:15)
[2022-03-14] MEDS ORDERED: PANTOPRAZOLE 40 MG/10 ML VIAL INJ IV ONE (15:00)
[2022-03-14 15:32] LABS: INR 1.12 (0.9-1.15); Partial Thromboplastin Time 30.5 sec (24.6-33.4)
[2022-03-14 15:34] LABS: BUN/Creatinine Ratio 32.7; Potassium 5.1 mmol/L (3.5-5.1)
[2022-03-14 15:35] LABS: Albumin 1.9 g/dL (3.4-5.0); Calcium 7.6 mg/dL (8.5-10.1); Magnesium 2.4 mg/dL (1.6-2.6)
[2022-03-14 15:38] LABS: Bilirubin, Total 0.4 mg/dL (0.2-1.0); Total Protein 5.6 g/dL (6.4-8.2)
[2022-03-14 15:41] LABS: Basophils # (auto) 0 10 ^3/uL (0-0.2); Eosinophils # (auto) 0 10 ^3/uL (0-0.8); Eosinophils % (auto) 0.1 % (0.0-7.0); Hematocrit 21.1 % (41.0-53.0); Lymphocytes # (auto) 0.7 10 ^3/uL (0.4-5.4); Monocytes # (auto) 0.5 10 ^3/uL (0-1.3); Monocytes % (auto) 3.4 % (0.0-12.0); Neutrophils # (auto) 14.2 10 ^3/uL (1.6-8.6); Red Blood Cells 2.22 10^6/uL (4.5-5.90); White Blood Cell 15.4 10^3/uL (4.4-10.8)
[2022-03-14 15:43] LABS: Basophils % (auto) 0.2 % (0.0-2.0); Lymphocytes % (auto) 4.4 % (10.0-50.0); Mean Corpuscular Hemoglobin 30.9 pg (28.0-32.0); Mean Corpuscular Hgb Conc. 32.5 g/dL (32.0-36.0); Mean Corpuscular Volume 95.1 fL (80.0-100.0); Neutrophils % (auto) 91.9 % (37.0-80.0)
[2022-03-14 15:50] LABS: Hemoglobin 6.9 g/dL (13.5-17.5)
[2022-03-14] MEDS ORDERED: PIPERACILLIN-TAZOB 2.25GM 50 ML IV ONE (17:15)
[2022-03-14 18:27] VITALS: BP 110/52
[2022-03-14] MEDS ORDERED: MORPHINE SULFATE INJ 2 MG/ml SYRG IV PRN (19:45)
[2022-03-14] MEDS ORDERED: NITROGLYCERIN 0.4 MG SL TAB SL PRN (19:45)
[2022-03-14] MEDS ORDERED: cefTRIAXone 1GM/50ML D5W 50 ML IV ONE (20:00)
[2022-03-14 20:19] LABS: Cholesterol 91 mg/dL (< 200)
[2022-03-14 20:22] LABS: HDL Cholesterol 25 mg/dL (40-59); LDL Cholesterol 69 mg/dL (< 100); Triglycerides 119 mg/dL (< 150)
[2022-03-14] MEDS: metroNIDAZOLE 500MG/100ML 100 ML IV SCH (21:47)
[2022-03-14] MEDS ORDERED: HYDROcodone-ACET 5/325MG TAB PO ONE (22:00)
[2022-03-14] MEDS: PANTOPRAZOLE 40 MG/10 ML VIAL INJ IV SCH (22:03)
[2022-03-14 23:04] VITALS: BP 134/58
[2022-03-15] VITALS (8 sets, daily range): BP systolic 97–157; BP diastolic 20–78
[2022-03-15] MEDS ORDERED: SODIUM BICARBONATE 8.4 % INJ 50ML VIAL IV ONE ×2 (03:48→03:52)
[2022-03-15] MEDS: metroNIDAZOLE 500MG/100ML 100 ML IV SCH ×3 (05:28→21:01)
[2022-03-15 06:31] LABS: Hematocrit 31.1 % (41.0-53.0); Hemoglobin 10.3 g/dL (13.5-17.5)
[2022-03-15 06:45] LABS: BUN/Creatinine Ratio 36.5; Calcium 8.1 mg/dL (8.5-10.1); Potassium 4.6 mmol/L (3.5-5.1)
[2022-03-15 08:18] LABS: Hematocrit 30.1 % (41.0-53.0); Hemoglobin 9.5 g/dL (13.5-17.5); Mean Corpuscular Hemoglobin 30.6 pg (28.0-32.0); Mean Corpuscular Hgb Conc. 31.7 g/dL (32.0-36.0); Mean Corpuscular Volume 96.7 fL (80.0-100.0); Red Blood Cells 3.11 10^6/uL (4.5-5.90); White Blood Cell 12.7 10^3/uL (4.4-10.8)
[2022-03-15 08:29] LABS: Basophils % (manual) 0 (0.0-2.0); Blast Cells 0; Myelocytes % 0; Promyelocytes % 0; Reactive Lymphocytes 0
[2022-03-15] MEDS: PANTOPRAZOLE 40 MG/10 ML VIAL INJ IV SCH ×2 (08:35→22:28)
[2022-03-15] MEDS: cefTRIAXone 1GM/50ML D5W 50 ML IV SCH (08:35)
[2022-03-15 08:42] LABS: Band Neutrophils % (manual) 21; Eosinophils % (manual) 1 (0-7); Lymphocytes % (manual) 7 (10.0-50.0); Metamyelocytes % 3; Monocytes % (manual) 5 (0-12)
[2022-03-15 11:54] LABS: Hemoglobin 9.2 g/dL (13.5-17.5)
[2022-03-15] MEDS ORDERED: AZITHROMYCIN 500MG/ 250ML 250 ML IV ONE (12:30)
[2022-03-15] MEDS: SODIUM BICARBONATE 50ML VIAL 150 ML in D5W 5% 1,000 ML IV SCH ×2 (18:35→21:15)
[2022-03-15 21:17] LABS: Urine Bacteria NONE SEEN /hpf (None Seen); Urine Blood Negative /uL (Negative); Urine Specific Gravity 1.015 (1.001-1.035); Urine WBC 19 /hpf (0 - 3)
[2022-03-15 22:42] LABS: Hematocrit 22.8 % (41.0-53.0); Hemoglobin 7.4 g/dL (13.5-17.5)
[2022-03-16] VITALS (8 sets, daily range): BP systolic 96–111; BP diastolic 42–58
[2022-03-16] MEDS: SODIUM BICARBONATE 50ML VIAL 150 ML in D5W 5% 1,000 ML IV SCH (05:00)
[2022-03-16] MEDS: metroNIDAZOLE 500MG/100ML 100 ML IV SCH ×3 (05:00→21:40)
[2022-03-16 07:15] LABS: Basophils # (auto) 0 10 ^3/uL (0-0.2); Basophils % (auto) 0.1 % (0.0-2.0); Eosinophils # (auto) 0 10 ^3/uL (0-0.8); Hematocrit 21.9 % (41.0-53.0); Hemoglobin 7.2 g/dL (13.5-17.5); Lymphocytes # (auto) 0.6 10 ^3/uL (0.4-5.4); Lymphocytes % (auto) 2.4 % (10.0-50.0); Mean Corpuscular Hemoglobin 30.7 pg (28.0-32.0); Mean Corpuscular Volume 92.9 fL (80.0-100.0); Monocytes # (auto) 0.7 10 ^3/uL (0-1.3); Monocytes % (auto) 2.9 % (0.0-12.0); Neutrophils % (auto) 94.6 % (37.0-80.0); Nucleated Red Blood Cells % 0.1 %; Red Blood Cells 2.35 10^6/uL (4.5-5.90); Red Cell Distribution Width 15.2 % (11.8-14.3); White Blood Cell 23.2 10^3/uL (4.4-10.8)
[2022-03-16] MEDS: PANTOPRAZOLE 40 MG/10 ML VIAL INJ IV SCH ×2 (09:10→21:41)
[2022-03-16] MEDS: cefTRIAXone 1GM/50ML D5W 50 ML IV SCH (09:10)
[2022-03-16 09:28] LABS: Albumin 1.7 g/dL (3.4-5.0); Calcium 7.3 mg/dL (8.5-10.1); Potassium 3.9 mmol/L (3.5-5.1)
[2022-03-16 09:31] LABS: Bilirubin, Total 0.3 mg/dL (0.2-1.0); Total Protein 5.1 g/dL (6.4-8.2)
[2022-03-16 09:32] LABS: BUN/Creatinine Ratio 36.8
[2022-03-16] MEDS: AZITHROMYCIN 500MG/ 250ML 250 ML IV SCH (09:45)
[2022-03-16] MEDS: MIDAZOLAM HCL 5 MG/ML-1ML VIAL ONE ×3 (15:45→18:00)
[2022-03-16] MEDS: fentaNYL CITRATE 100 MCG/2 ML VL ONE ×2 (15:45→15:48)
[2022-03-16] MEDS ORDERED: diphenhdrAMINE HCL 50 MG/1 ML VL ONE (16:31)
[2022-03-16 17:38] LABS: Hematocrit 18.2 % (41.0-53.0)
[2022-03-16 17:43] LABS: Hemoglobin 6.1 g/dL (13.5-17.5)
[2022-03-16] MEDS: SUCRALFATE 1 GM/10 ML ORAL SUSP PO SCH ×2 (18:10→21:41)
[2022-03-16] MEDS: SODIUM CHLORIDE 0.9% 1,000 ML IV SCH (21:41)
[2022-03-17] VITALS (7 sets, daily range): BP systolic 107–143; BP diastolic 52–99
[2022-03-17] MEDS: metroNIDAZOLE 500MG/100ML 100 ML IV SCH ×3 (05:44→21:25)
[2022-03-17] MEDS: SUCRALFATE 1 GM/10 ML ORAL SUSP PO SCH ×4 (05:45→21:25)
[2022-03-17] MEDS: SODIUM CHLORIDE 0.9% 1,000 ML IV SCH ×3 (05:45→18:44)
[2022-03-17 06:22] LABS: Basophils # (auto) 0 10 ^3/uL (0-0.2); Basophils % (auto) 0.1 % (0.0-2.0); Eosinophils # (auto) 0 10 ^3/uL (0-0.8); Lymphocytes # (auto) 1.4 10 ^3/uL (0.4-5.4); Monocytes # (auto) 0.5 10 ^3/uL (0-1.3); Neutrophils % (auto) 87.8 % (37.0-80.0)
[2022-03-17 06:24] LABS: Eosinophils % (auto) 0.1 % (0.0-7.0); Hematocrit 21.6 % (41.0-53.0); Hemoglobin 7.3 g/dL (13.5-17.5); Mean Corpuscular Hemoglobin 31.1 pg (28.0-32.0); Mean Corpuscular Hgb Conc. 34.1 g/dL (32.0-36.0); Mean Corpuscular Volume 91.3 fL (80.0-100.0); Neutrophils # (auto) 13.8 10 ^3/uL (1.6-8.6); Nucleated Red Blood Cells % 0.1 %; Red Blood Cells 2.36 10^6/uL (4.5-5.90); Red Cell Distribution Width 16.1 % (11.8-14.3); White Blood Cell 15.7 10^3/uL (4.4-10.8)
[2022-03-17 06:44] LABS: Potassium 4.2 mmol/L (3.5-5.1)
[2022-03-17 06:52] LABS: Albumin 1.4 g/dL (3.4-5.0); BUN/Creatinine Ratio 38.9; Bilirubin, Total 0.3 mg/dL (0.2-1.0)
[2022-03-17] MEDS: cefTRIAXone 1GM/50ML D5W 50 ML IV SCH (09:39)
[2022-03-17] MEDS: PANTOPRAZOLE 40 MG/10 ML VIAL INJ IV SCH ×2 (09:40→21:25)
[2022-03-17] MEDS: AZITHROMYCIN 500MG/ 250ML 250 ML IV SCH (11:12)
[2022-03-17 15:39] LABS: Hematocrit 22.1 % (41.0-53.0)
[2022-03-17] MEDS ORDERED: FUROSEMIDE 40 MG/4 ML VIAL IV ONE (18:30)
[2022-03-18] VITALS (9 sets, daily range): BP systolic 123–160; BP diastolic 56–80
[2022-03-18] MEDS: metroNIDAZOLE 500MG/100ML 100 ML IV SCH ×3 (05:56→23:59)
[2022-03-18] MEDS: SUCRALFATE 1 GM/10 ML ORAL SUSP PO SCH ×4 (05:56→22:59)
[2022-03-18 06:26] LABS: Hematocrit 19.5 % (41.0-53.0); Mean Corpuscular Volume 91.1 fL (80.0-100.0)
[2022-03-18 06:29] LABS: Mean Corpuscular Hemoglobin 29.9 pg (28.0-32.0); Mean Corpuscular Hgb Conc. 32.8 g/dL (32.0-36.0); Red Blood Cells 2.13 10^6/uL (4.5-5.90); Red Cell Distribution Width 16.1 % (11.8-14.3); White Blood Cell 13.4 10^3/uL (4.4-10.8)
[2022-03-18 06:47] LABS: Albumin 1.7 g/dL (3.4-5.0); Anion Gap 11 (5-15); BUN/Creatinine Ratio 36.4; Calcium 7.3 mg/dL (8.5-10.1); Carbon Dioxide 21 mmol/L (21-32); Chloride 114 mmol/L (98-107); GFR African American 26 mL/min; GFR Non-African American 22 mL/min; Glucose 129 mg/dL (74-106); Potassium 3.4 mmol/L (3.5-5.1); Sodium 146 mmol/L (136-145)
[2022-03-18 06:50] LABS: Alanine Aminotransferase 11 U/L (16-61); Alkaline Phosphatase 112 U/L (45-117); Aspartate Aminotransferase 35 U/L (15-37); Bilirubin, Total 0.3 mg/dL (0.2-1.0); Total Protein 5.3 g/dL (6.4-8.2)
[2022-03-18 06:51] LABS: Hemoglobin 6.4 g/dL (13.5-17.5)
[2022-03-18 06:53] LABS: Basophils % (manual) 0 (0.0-2.0); Blast Cells 0; Eosinophils % (manual) 0 (0-7); Metamyelocytes % 0; Myelocytes % 0; Promyelocytes % 0; Reactive Lymphocytes 0
[2022-03-18 07:25] LABS: Blood Urea Nitrogen 106 mg/dL (7-18)
[2022-03-18 07:35] LABS: Band Neutrophils % (manual) 8; Lymphocytes % (manual) 8 (10.0-50.0); Monocytes % (manual) 3 (0-12)
[2022-03-18] MEDS: PANTOPRAZOLE 40 MG/10 ML VIAL INJ IV SCH ×2 (09:44→22:59)
[2022-03-18] MEDS: cefTRIAXone 1GM/50ML D5W 50 ML IV SCH (09:45)
[2022-03-18] MEDS: AZITHROMYCIN 500MG/ 250ML 250 ML IV SCH (09:45)
[2022-03-18] MEDS: SODIUM CHLORIDE 0.9% 1,000 ML IV SCH (12:35)
[2022-03-18 13:48] LABS: Basophils # (auto) 0 10 ^3/uL (0-0.2); Eosinophils # (auto) 0 10 ^3/uL (0-0.8); Eosinophils % (auto) 0.3 % (0.0-7.0); Hemoglobin 8.1 g/dL (13.5-17.5); Mean Corpuscular Hgb Conc. 33.4 g/dL (32.0-36.0); Neutrophils # (auto) 11.9 10 ^3/uL (1.6-8.6); Red Blood Cells 2.71 10^6/uL (4.5-5.90)
[2022-03-18 13:50] LABS: Basophils % (auto) 0.1 % (0.0-2.0); Hematocrit 24.4 % (41.0-53.0); Lymphocytes # (auto) 0.7 10 ^3/uL (0.4-5.4); Lymphocytes % (auto) 5.2 % (10.0-50.0); Mean Corpuscular Volume 89.9 fL (80.0-100.0); Monocytes # (auto) 0.5 10 ^3/uL (0-1.3); Monocytes % (auto) 3.8 % (0.0-12.0); Neutrophils % (auto) 90.6 % (37.0-80.0); Red Cell Distribution Width 16.4 % (11.8-14.3); White Blood Cell 13.1 10^3/uL (4.4-10.8)
[2022-03-18 14:04] LABS: BUN/Creatinine Ratio 31.5; Calcium 7.3 mg/dL (8.5-10.1); Potassium 3.2 mmol/L (3.5-5.1)
[2022-03-19 05:00] VITALS: BP 98/52
[2022-03-19] MEDS: SUCRALFATE 1 GM/10 ML ORAL SUSP PO SCH ×4 (05:51→21:50)
[2022-03-19] MEDS: metroNIDAZOLE 500MG/100ML 100 ML IV SCH ×3 (05:51→21:49)
[2022-03-19 07:56] LABS: Basophils # (auto) 0 10 ^3/uL (0-0.2); Eosinophils # (auto) 0 10 ^3/uL (0-0.8); Lymphocytes # (auto) 0.9 10 ^3/uL (0.4-5.4); Monocytes # (auto) 0.5 10 ^3/uL (0-1.3); Monocytes % (auto) 4.5 % (0.0-12.0); Red Cell Distribution Width 15.6 % (11.8-14.3)
[2022-03-19 07:58] LABS: Basophils % (auto) 0.3 % (0.0-2.0); Eosinophils % (auto) 0.3 % (0.0-7.0); Hematocrit 20.5 % (41.0-53.0); Lymphocytes % (auto) 7.4 % (10.0-50.0); Mean Corpuscular Hemoglobin 30.9 pg (28.0-32.0); Mean Corpuscular Hgb Conc. 34.4 g/dL (32.0-36.0); Mean Corpuscular Volume 89.9 fL (80.0-100.0); Neutrophils # (auto) 10.1 10 ^3/uL (1.6-8.6); Neutrophils % (auto) 87.5 % (37.0-80.0); Nucleated Red Blood Cells % 0.1 %; Red Blood Cells 2.28 10^6/uL (4.5-5.90); White Blood Cell 11.6 10^3/uL (4.4-10.8)
[2022-03-19 08:04] LABS: Albumin 1.3 g/dL (3.4-5.0); Calcium 7.2 mg/dL (8.5-10.1); Potassium 3.8 mmol/L (3.5-5.1)
[2022-03-19 08:08] LABS: BUN/Creatinine Ratio 29.5; Bilirubin, Total 0.4 mg/dL (0.2-1.0); Total Protein 4.5 g/dL (6.4-8.2)
[2022-03-19 09:00] VITALS: BP 102/59
[2022-03-19] MEDS: cefTRIAXone 1GM/50ML D5W 50 ML IV SCH (09:36)
[2022-03-19] MEDS: PANTOPRAZOLE 40 MG/10 ML VIAL INJ IV SCH ×2 (09:36→21:49)
[2022-03-19] MEDS: SODIUM CHLORIDE 0.9% 1,000 ML IV SCH ×2 (10:32→21:50)
[2022-03-19] MEDS: AZITHROMYCIN 500MG/ 250ML 250 ML IV SCH (10:32)
[2022-03-19 13:00] VITALS: BP 108/54
[2022-03-19 17:06] VITALS: BP 122/59
[2022-03-19 21:49] VITALS: BP 143/66
[2022-03-20 04:47] VITALS: BP 125/53
[2022-03-20] MEDS: SODIUM CHLORIDE 0.9% 1,000 ML IV SCH (05:45)
[2022-03-20] MEDS: metroNIDAZOLE 500MG/100ML 100 ML IV SCH ×3 (05:59→21:22)
[2022-03-20 06:41] LABS: Hemoglobin 7.5 g/dL (13.5-17.5); Mean Corpuscular Hgb Conc. 33.9 g/dL (32.0-36.0)
[2022-03-20 06:43] LABS: Hematocrit 22.1 % (41.0-53.0); Mean Corpuscular Hemoglobin 31.4 pg (28.0-32.0); Mean Corpuscular Volume 92.8 fL (80.0-100.0); Red Blood Cells 2.38 10^6/uL (4.5-5.90); Red Cell Distribution Width 15.8 % (11.8-14.3); White Blood Cell 11.7 10^3/uL (4.4-10.8)
[2022-03-20 06:46] LABS: Basophils % (manual) 0 (0.0-2.0); Blast Cells 0; Eosinophils % (manual) 0 (0-7); Metamyelocytes % 0; Monocytes % (manual) 0 (0-12); Promyelocytes % 0; Reactive Lymphocytes 0
[2022-03-20] MEDS: SUCRALFATE 1 GM/10 ML ORAL SUSP PO SCH ×4 (06:53→21:23)
[2022-03-20 06:56] LABS: Potassium 3.8 mmol/L (3.5-5.1)
[2022-03-20 07:06] LABS: Albumin 1.5 g/dL (3.4-5.0); BUN/Creatinine Ratio 29.2; Bilirubin, Total 0.3 mg/dL (0.2-1.0); Calcium 7.3 mg/dL (8.5-10.1); Total Protein 4.8 g/dL (6.4-8.2)
[2022-03-20 07:11] LABS: Band Neutrophils % (manual) 3; Lymphocytes % (manual) 8 (10.0-50.0); Myelocytes % 1
[2022-03-20] MEDS ORDERED: TAMSULOSIN HYDROCHLORIDE 0.4 MG CAP PO ONE (08:30)
[2022-03-20 09:26] VITALS: BP 152/71
[2022-03-20] MEDS: PANTOPRAZOLE 40 MG/10 ML VIAL INJ IV SCH ×2 (10:29→21:22)
[2022-03-20] MEDS: cefTRIAXone 1GM/50ML D5W 50 ML IV SCH (10:29)
[2022-03-20] MEDS: SOD CHL 0.45% 1,000 ML IV SCH ×2 (10:29→18:25)
[2022-03-20] MEDS: AZITHROMYCIN 500MG/ 250ML 250 ML IV SCH (10:30)
[2022-03-20 12:24] VITALS: BP 127/57
[2022-03-20] MEDS: TAMSULOSIN HYDROCHLORIDE 0.4 MG CAP PO SCH (17:14)
[2022-03-20 17:19] VITALS: BP 129/61
[2022-03-20 22:00] VITALS: BP 147/69
[2022-03-21] VITALS (16 sets, daily range): BP systolic 111–164; BP diastolic 52–88
[2022-03-21 04:57] LABS: Mean Corpuscular Volume 90.2 fL (80.0-100.0)
[2022-03-21 05:00] LABS: Hematocrit 19.2 % (41.0-53.0); Mean Corpuscular Hemoglobin 31.5 pg (28.0-32.0); Mean Corpuscular Hgb Conc. 34.9 g/dL (32.0-36.0); Red Blood Cells 2.13 10^6/uL (4.5-5.90); Red Cell Distribution Width 15.9 % (11.8-14.3); White Blood Cell 9.1 10^3/uL (4.4-10.8)
[2022-03-21 05:07] LABS: Albumin 1.5 g/dL (3.4-5.0); Calcium 7.2 mg/dL (8.5-10.1); Potassium 3.9 mmol/L (3.5-5.1)
[2022-03-21 05:13] LABS: BUN/Creatinine Ratio 25.2; Bilirubin, Total 0.3 mg/dL (0.2-1.0); Total Protein 4.9 g/dL (6.4-8.2)
[2022-03-21 05:14] LABS: Hemoglobin 6.7 g/dL (13.5-17.5)
[2022-03-21 05:16] LABS: Band Neutrophils % (manual) 0; Basophils % (manual) 0 (0.0-2.0); Blast Cells 0; Eosinophils % (manual) 0 (0-7); Myelocytes % 0; Promyelocytes % 0; Reactive Lymphocytes 0
[2022-03-21] MEDS: SOD CHL 0.45% 1,000 ML IV SCH ×2 (05:49→15:00)
[2022-03-21] MEDS: SUCRALFATE 1 GM/10 ML ORAL SUSP PO SCH ×4 (05:49→23:15)
[2022-03-21] MEDS: metroNIDAZOLE 500MG/100ML 100 ML IV SCH ×2 (05:50→12:27)
[2022-03-21 06:51] LABS: Lymphocytes % (manual) 11 (10.0-50.0); Metamyelocytes % 1; Monocytes % (manual) 5 (0-12)
[2022-03-21] MEDS: cefTRIAXone 1GM/50ML D5W 50 ML IV SCH (08:50)
[2022-03-21] MEDS: AZITHROMYCIN 500MG/ 250ML 250 ML IV SCH (08:51)
[2022-03-21] MEDS: PANTOPRAZOLE 40 MG/10 ML VIAL INJ IV SCH ×2 (08:51→23:16)
[2022-03-21] MEDS: TAMSULOSIN HYDROCHLORIDE 0.4 MG CAP PO SCH (18:24)
[2022-03-21] MEDS: AMOXICILLIN TRIHYDRATE 250 MG CAP PO SCH (23:15)
[2022-03-22] VITALS (8 sets, daily range): BP systolic 141–166; BP diastolic 68–82
[2022-03-22 05:38] LABS: Hematocrit 27.8 % (41.0-53.0); Hemoglobin 9.3 g/dL (13.5-17.5); Mean Corpuscular Hemoglobin 30.4 pg (28.0-32.0); Mean Corpuscular Hgb Conc. 33.5 g/dL (32.0-36.0); Mean Corpuscular Volume 90.8 fL (80.0-100.0); Red Blood Cells 3.07 10^6/uL (4.5-5.90); Red Cell Distribution Width 16.9 % (11.8-14.3); White Blood Cell 8.4 10^3/uL (4.4-10.8)
[2022-03-22] MEDS: SOD CHL 0.45% 1,000 ML IV SCH ×2 (05:48→11:00)
[2022-03-22 05:55] LABS: Band Neutrophils % (manual) 0; Basophils % (manual) 0 (0.0-2.0); Blast Cells 0; Myelocytes % 0; Promyelocytes % 0; Reactive Lymphocytes 0
[2022-03-22 05:57] LABS: BUN/Creatinine Ratio 21.5; Calcium 7.4 mg/dL (8.5-10.1); Potassium 3.8 mmol/L (3.5-5.1)
[2022-03-22] MEDS: SUCRALFATE 1 GM/10 ML ORAL SUSP PO SCH ×4 (06:23→22:42)
[2022-03-22 08:39] LABS: Eosinophils % (manual) 3 (0-7); Lymphocytes % (manual) 21 (10.0-50.0); Metamyelocytes % 2; Monocytes % (manual) 7 (0-12)
[2022-03-22] MEDS: PANTOPRAZOLE 40 MG/10 ML VIAL INJ IV SCH (09:17)
[2022-03-22] MEDS: AMOXICILLIN TRIHYDRATE 250 MG CAP PO SCH ×2 (09:18→22:42)
[2022-03-22] MEDS ORDERED: AZITHROMYCIN 250 MG TAB PO SCH (10:00)
[2022-03-22] MEDS: TAMSULOSIN HYDROCHLORIDE 0.4 MG CAP PO SCH (16:52)
[2022-03-22] MEDS: CLARITHROMYCIN 500 MG TAB PO SCH (22:42)
[2022-03-22] MEDS: PANTOPRAZOLE 40 MG TAB PO SCH (22:42)
[2022-03-23 05:43] LABS: Hematocrit 25.5 % (41.0-53.0); Hemoglobin 8.7 g/dL (13.5-17.5); Mean Corpuscular Hemoglobin 30.4 pg (28.0-32.0); Mean Corpuscular Volume 89.7 fL (80.0-100.0); Red Blood Cells 2.84 10^6/uL (4.5-5.90); Red Cell Distribution Width 16.7 % (11.8-14.3); White Blood Cell 7.4 10^3/uL (4.4-10.8)
[2022-03-23 05:46] LABS: Basophils % (manual) 0 (0.0-2.0); Blast Cells 0; Eosinophils % (manual) 0 (0-7); Promyelocytes % 0; Reactive Lymphocytes 0
[2022-03-23 05:48] LABS: Calcium 7.4 mg/dL (8.5-10.1); Potassium 4.1 mmol/L (3.5-5.1)
[2022-03-23 05:50] LABS: BUN/Creatinine Ratio 20.1
[2022-03-23] MEDS: SUCRALFATE 1 GM/10 ML ORAL SUSP PO SCH ×4 (06:40→21:21)
[2022-03-23 06:41] LABS: Band Neutrophils % (manual) 1; Metamyelocytes % 1; Monocytes % (manual) 5 (0-12); Myelocytes % 1
[2022-03-23 06:42] LABS: Lymphocytes % (manual) 12 (10.0-50.0)
[2022-03-23 09:22] VITALS: BP 155/71
[2022-03-23] MEDS: AMOXICILLIN TRIHYDRATE 250 MG CAP PO SCH ×2 (10:12→21:21)
[2022-03-23] MEDS: PANTOPRAZOLE 40 MG TAB PO SCH ×2 (10:12→21:21)
[2022-03-23] MEDS: CLARITHROMYCIN 500 MG TAB PO SCH ×2 (10:13→21:21)
[2022-03-23 13:00] VITALS: BP 150/75
[2022-03-23 17:01] VITALS: BP 161/76
[2022-03-23] MEDS: TAMSULOSIN HYDROCHLORIDE 0.4 MG CAP PO SCH (17:22)
[2022-03-23 18:28] LABS: Basophils # (auto) 0.1 10 ^3/uL (0-0.2); Basophils % (auto) 0.9 % (0.0-2.0); Eosinophils # (auto) 0.1 10 ^3/uL (0-0.8); Eosinophils % (auto) 1.6 % (0.0-7.0); Hematocrit 25.9 % (41.0-53.0); Hemoglobin 8.6 g/dL (13.5-17.5); Mean Corpuscular Hemoglobin 30.3 pg (28.0-32.0); Mean Corpuscular Hgb Conc. 33.1 g/dL (32.0-36.0); Mean Corpuscular Volume 91.6 fL (80.0-100.0); Monocytes # (auto) 0.6 10 ^3/uL (0-1.3); Monocytes % (auto) 8.4 % (0.0-12.0); Neutrophils # (auto) 5.6 10 ^3/uL (1.6-8.6); Neutrophils % (auto) 76.1 % (37.0-80.0); Nucleated Red Blood Cells % 0.1 %; Red Blood Cells 2.83 10^6/uL (4.5-5.90); Red Cell Distribution Width 16.9 % (11.8-14.3); White Blood Cell 7.3 10^3/uL (4.4-10.8)
[2022-03-23] MEDS ORDERED: amLODIPine BESYLATE 5 MG TAB PO ONE (18:30)
[2022-03-23 22:00] VITALS: BP 125/67
[2022-03-24] VITALS (13 sets, daily range): BP systolic 80–117; BP diastolic 40–75
[2022-03-24] MEDS: SUCRALFATE 1 GM/10 ML ORAL SUSP PO SCH ×4 (06:05→22:44)
[2022-03-24] MEDS ORDERED: SODIUM FERR GLUC 62.5MG/5ML 125 MG in SODIUM CHL 0.9% 100 ML IV ONE ×2 (10:00→12:30)
[2022-03-24] MEDS: amLODIPine BESYLATE 5 MG TAB PO SCH (10:25)
[2022-03-24] MEDS: PANTOPRAZOLE 40 MG TAB PO SCH ×2 (10:26→22:45)
[2022-03-24] MEDS: CLARITHROMYCIN 500 MG TAB PO SCH ×2 (10:26→22:44)
[2022-03-24] MEDS: AMOXICILLIN TRIHYDRATE 250 MG CAP PO SCH ×2 (10:26→22:45)
[2022-03-24 10:50] LABS: Calcium 7.2 mg/dL (8.5-10.1); Potassium 4.5 mmol/L (3.5-5.1)
[2022-03-24 10:52] LABS: Hematocrit 21.4 % (41.0-53.0)
[2022-03-24 10:55] LABS: BUN/Creatinine Ratio 20.4
[2022-03-24 11:06] LABS: Hemoglobin 6.9 g/dL (13.5-17.5)
[2022-03-24] MEDS ORDERED: SODIUM FERR GLUC 62.5MG/5ML 125 MG in SODIUM CHL 0.9% 100 ML IV SCH ×4 (12:00)
[2022-03-24] MEDS: TAMSULOSIN HYDROCHLORIDE 0.4 MG CAP PO SCH (18:00)
[2022-03-25] VITALS (8 sets, daily range): BP systolic 95–139; BP diastolic 43–70
[2022-03-25] MEDS: SUCRALFATE 1 GM/10 ML ORAL SUSP PO SCH ×4 (06:06→22:05)
[2022-03-25] MEDS: amLODIPine BESYLATE 5 MG TAB PO SCH (10:00)
[2022-03-25] MEDS: PANTOPRAZOLE 40 MG TAB PO SCH (10:00)
[2022-03-25] MEDS: CLARITHROMYCIN 500 MG TAB PO SCH ×2 (10:00→22:06)
[2022-03-25] MEDS: AMOXICILLIN TRIHYDRATE 250 MG CAP PO SCH ×2 (10:00→22:05)
[2022-03-25] MEDS ORDERED: EPINEPHrine HCL 1 MG/10 ML SYRG ONE ×2 (10:49→14:16)
[2022-03-25] MEDS ORDERED: FLUMAZENIL 0.1 MG/ML INJ 10ML MDV IV ONE (10:49)
[2022-03-25] MEDS ORDERED: NALOXONE HCL 0.4 MG/ML VIAL ONE (10:49)
[2022-03-25 11:13] LABS: Hematocrit 21.6 % (41.0-53.0); Hemoglobin 7.2 g/dL (13.5-17.5)
[2022-03-25] MEDS: SODIUM FERR GLUC 62.5MG/5ML 125 MG in SODIUM CHL 0.9% 100 ML IV SCH (13:12)
[2022-03-25] MEDS ORDERED: MIDAZOLAM HCL 2MG/2ML 2ml VIAL (1mg/ml) ONE (14:03)
[2022-03-25] MEDS ORDERED: fentaNYL CITRATE 100 MCG/2 ML VL ONE (14:04)
[2022-03-25] MEDS ORDERED: ONDANSETRON HCL 4 MG/2 ML VIAL ONE (14:05)
[2022-03-25] MEDS ORDERED: LIDOCAINE 2% (LOCAL ANESTH.) PF 5ml SDV ONE (14:05)
[2022-03-25] MEDS ORDERED: PROPOFOL 10 MG/ML 20 ML IV ONE (14:05)
[2022-03-25] MEDS ORDERED: ONDANSETRON HCL 4 MG/2 ML VIAL IV PRN (14:45)
[2022-03-25] MEDS: PANTOPRAZOLE 40mg/50ML NS AE 50 ML IV SCH ×2 (15:15→20:25)
[2022-03-25] MEDS: TAMSULOSIN HYDROCHLORIDE 0.4 MG CAP PO SCH (18:00)
[2022-03-25] MEDS ORDERED: CLINIMIX PER PHARMACY 0 ML IV SCH (20:00)
[2022-03-25] MEDS ORDERED: DEXTROSE (50%) 50ML SYRG IV SCH (20:15)
[2022-03-25 21:56] LABS: Basophils # (auto) 0.1 10 ^3/uL (0-0.2); Basophils % (auto) 0.6 % (0.0-2.0); Eosinophils # (auto) 0.1 10 ^3/uL (0-0.8); Eosinophils % (auto) 0.7 % (0.0-7.0); Hematocrit 18.7 % (41.0-53.0); Lymphocytes # (auto) 0.4 10 ^3/uL (0.4-5.4); Mean Corpuscular Hemoglobin 30.3 pg (28.0-32.0); Mean Corpuscular Hgb Conc. 33.3 g/dL (32.0-36.0); Mean Corpuscular Volume 91.1 fL (80.0-100.0); Monocytes # (auto) 0.4 10 ^3/uL (0-1.3); Neutrophils # (auto) 7.7 10 ^3/uL (1.6-8.6); Neutrophils % (auto) 88.7 % (37.0-80.0); Nucleated Red Blood Cells % 0.2 %; Red Blood Cells 2.06 10^6/uL (4.5-5.90); Red Cell Distribution Width 16.7 % (11.8-14.3); White Blood Cell 8.7 10^3/uL (4.4-10.8)
[2022-03-25 21:59] LABS: Hemoglobin 6.2 g/dL (13.5-17.5)
[2022-03-25] MEDS: AMINO ACID INFUSION IN D10W 1,000 ML IV NR (22:06)
[2022-03-25 22:30] LABS: Albumin 1.5 g/dL (3.4-5.0); Magnesium 1.4 mg/dL (1.6-2.6)
[2022-03-25 22:33] LABS: Bilirubin, Direct 0.1 mg/dL (0-0.2); Bilirubin, Total 0.2 mg/dL (0.2-1.0); Phosphorus 2.9 mg/dL (2.5-4.90); Total Protein 4.6 g/dL (6.4-8.2)
[2022-03-26] VITALS (11 sets, daily range): BP systolic 106–149; BP diastolic 52–63
[2022-03-26] MEDS: ACCU-CHEK COMFORT CURVE STRIP VI SCH ×4 (00:13→17:58)
[2022-03-26] MEDS: InsuLIN REG 1unit/0.01ml Soln (100units/ml) SC SCH ×4 (00:31→17:58)
[2022-03-26] MEDS: PANTOPRAZOLE 40mg/50ML NS AE 50 ML IV SCH ×5 (01:08→21:23)
[2022-03-26 05:53] LABS: Hemoglobin 7.3 g/dL (13.5-17.5); Lymphocytes # (auto) 0.5 10 ^3/uL (0.4-5.4); Mean Corpuscular Hgb Conc. 33.9 g/dL (32.0-36.0); Monocytes # (auto) 0.5 10 ^3/uL (0-1.3); Neutrophils # (auto) 6.8 10 ^3/uL (1.6-8.6)
[2022-03-26 05:55] LABS: Basophils # (auto) 0.1 10 ^3/uL (0-0.2); Basophils % (auto) 0.7 % (0.0-2.0); Eosinophils # (auto) 0.1 10 ^3/uL (0-0.8); Eosinophils % (auto) 0.7 % (0.0-7.0); Hematocrit 21.5 % (41.0-53.0); Lymphocytes % (auto) 5.8 % (10.0-50.0); Mean Corpuscular Hemoglobin 31.1 pg (28.0-32.0); Mean Corpuscular Volume 91.6 fL (80.0-100.0); Monocytes % (auto) 5.8 % (0.0-12.0); Nucleated Red Blood Cells % 0.2 %; Red Blood Cells 2.34 10^6/uL (4.5-5.90); Red Cell Distribution Width 15.5 % (11.8-14.3); White Blood Cell 7.9 10^3/uL (4.4-10.8)
[2022-03-26 06:05] LABS: Potassium 4.8 mmol/L (3.5-5.1)
[2022-03-26 06:20] LABS: Albumin 1.4 g/dL (3.4-5.0); BUN/Creatinine Ratio 27.9; Bilirubin, Total 0.3 mg/dL (0.2-1.0); Magnesium 1.6 mg/dL (1.6-2.6); Phosphorus 2.8 mg/dL (2.5-4.90); Total Protein 4.4 g/dL (6.4-8.2)
[2022-03-26] MEDS: SUCRALFATE 1 GM/10 ML ORAL SUSP PO SCH ×4 (06:52→22:39)
[2022-03-26] MEDS: amLODIPine BESYLATE 5 MG TAB PO SCH (10:44)
[2022-03-26] MEDS: AMOXICILLIN TRIHYDRATE 250 MG CAP PO SCH ×2 (10:44→22:39)
[2022-03-26] MEDS: CLARITHROMYCIN 500 MG TAB PO SCH ×2 (10:44→22:44)
[2022-03-26] MEDS: SODIUM FERR GLUC 62.5MG/5ML 125 MG in SODIUM CHL 0.9% 100 ML IV SCH (12:13)
[2022-03-26] MEDS: TAMSULOSIN HYDROCHLORIDE 0.4 MG CAP PO SCH (17:58)
[2022-03-26] MEDS: AMINO ACID INFUSION IN D10W 1,000 ML IV NR ×2 (20:00→20:49)
[2022-03-27] MEDS: ACCU-CHEK COMFORT CURVE STRIP VI SCH ×4 (00:22→18:08)
[2022-03-27] MEDS: InsuLIN REG 1unit/0.01ml Soln (100units/ml) SC SCH ×4 (00:23→18:07)
[2022-03-27] MEDS: PANTOPRAZOLE 40mg/50ML NS AE 50 ML IV SCH ×5 (02:30→23:40)
[2022-03-27 05:00] VITALS: BP 110/30
[2022-03-27 06:22] LABS: Albumin 1.4 g/dL (3.4-5.0); BUN/Creatinine Ratio 32.9; Calcium 7.1 mg/dL (8.5-10.1); Magnesium 1.8 mg/dL (1.6-2.6); Potassium 4.1 mmol/L (3.5-5.1)
[2022-03-27 06:25] LABS: Bilirubin, Total 0.2 mg/dL (0.2-1.0); Phosphorus 2.4 mg/dL (2.5-4.90); Total Protein 4.5 g/dL (6.4-8.2)
[2022-03-27] MEDS: SUCRALFATE 1 GM/10 ML ORAL SUSP PO SCH ×4 (06:28→21:55)
[2022-03-27 09:00] VITALS: BP 130/66
[2022-03-27] MEDS: AMOXICILLIN TRIHYDRATE 250 MG CAP PO SCH ×2 (10:10→21:55)
[2022-03-27] MEDS: amLODIPine BESYLATE 5 MG TAB PO SCH (10:10)
[2022-03-27] MEDS: CLARITHROMYCIN 500 MG TAB PO SCH ×2 (10:11→21:56)
[2022-03-27] MEDS ORDERED: SODIUM PHOSPHATES 10 MEQ in SODIUM CHL 0.9% 100 ML IV ONE (11:30)
[2022-03-27] MEDS: AMINO ACID INFUSION IN D10W 1,000 ML IV NR ×2 (11:41→20:38)
[2022-03-27] MEDS: SODIUM FERR GLUC 62.5MG/5ML 125 MG in SODIUM CHL 0.9% 100 ML IV SCH (12:29)
[2022-03-27 13:00] VITALS: BP 107/51
[2022-03-27 17:00] VITALS: BP 120/51
[2022-03-27] MEDS: TAMSULOSIN HYDROCHLORIDE 0.4 MG CAP PO SCH (17:45)
[2022-03-27 22:00] VITALS: BP 117/36
[2022-03-28] VITALS (18 sets, daily range): BP systolic 116–165; BP diastolic 41–93
[2022-03-28] MEDS: InsuLIN REG 1unit/0.01ml Soln (100units/ml) SC SCH ×5 (00:44→23:51)
[2022-03-28] MEDS: PANTOPRAZOLE 40mg/50ML NS AE 50 ML IV SCH ×5 (03:27→23:49)
[2022-03-28] MEDS: ACCU-CHEK COMFORT CURVE STRIP VI SCH ×5 (05:39→23:52)
[2022-03-28] MEDS: SUCRALFATE 1 GM/10 ML ORAL SUSP PO SCH ×4 (05:40→21:24)
[2022-03-28 07:37] LABS: Hematocrit 17.2 % (41.0-53.0); Mean Corpuscular Hgb Conc. 33.9 g/dL (32.0-36.0); Mean Corpuscular Volume 91.5 fL (80.0-100.0); Red Blood Cells 1.88 10^6/uL (4.5-5.90); Red Cell Distribution Width 15.7 % (11.8-14.3)
[2022-03-28 07:46] LABS: Albumin 1.7 g/dL (3.4-5.0); BUN/Creatinine Ratio 29.9; Calcium 7.3 mg/dL (8.5-10.1); Hemoglobin 5.8 g/dL (13.5-17.5); Magnesium 1.7 mg/dL (1.6-2.6); Phosphorus 2.7 mg/dL (2.5-4.90); Potassium 3.4 mmol/L (3.5-5.1)
[2022-03-28 07:49] LABS: Basophils % (manual) 0 (0.0-2.0); Blast Cells 0; Eosinophils % (manual) 0 (0-7); Myelocytes % 0; Reactive Lymphocytes 0
[2022-03-28] MEDS: amLODIPine BESYLATE 5 MG TAB PO SCH (09:32)
[2022-03-28] MEDS: AMOXICILLIN TRIHYDRATE 250 MG CAP PO SCH ×2 (09:32→21:25)
[2022-03-28 09:36] LABS: Band Neutrophils % (manual) 1; Lymphocytes % (manual) 12 (10.0-50.0); Metamyelocytes % 2; Monocytes % (manual) 4 (0-12); Promyelocytes % 3
[2022-03-28 09:42] LABS: INR 1.23 (0.9-1.15); Partial Thromboplastin Time 35.4 sec (24.6-33.4)
[2022-03-28] MEDS: CLARITHROMYCIN 500 MG TAB PO SCH ×2 (11:08→21:25)
[2022-03-28] MEDS: SODIUM FERR GLUC 62.5MG/5ML 125 MG in SODIUM CHL 0.9% 100 ML IV SCH (13:00)
[2022-03-28] MEDS ORDERED: POTASSIUM PHOSPHATE 22 MEQ in SODIUM CHL 0.9% 100 ML IV ONE (14:30)
[2022-03-28] MEDS ORDERED: LIDOCAINE 1% (LOCAL ANESTH.) PF 5ml SDV ID ONE (17:15)
[2022-03-28] MEDS: TAMSULOSIN HYDROCHLORIDE 0.4 MG CAP PO SCH (17:27)
[2022-03-28] MEDS: AMINO ACID INFUSION IN D10W 1,000 ML IV NR (19:49)
[2022-03-28] MEDS: CLINIMIX PER PHARMACY IV NR (20:56)
[2022-03-28] MEDS: SODIUM CHLOR 0.9% PF (SALINE LOCK) 10ML VIAL/SYR IV SCH (21:25)
[2022-03-29] VITALS (11 sets, daily range): BP systolic 105–130; BP diastolic 40–72
[2022-03-29] MEDS: PANTOPRAZOLE 40mg/50ML NS AE 50 ML IV SCH ×4 (04:30→21:42)
[2022-03-29] MEDS: InsuLIN REG 1unit/0.01ml Soln (100units/ml) SC SCH ×4 (05:50→23:47)
[2022-03-29] MEDS: ACCU-CHEK COMFORT CURVE STRIP VI SCH ×4 (05:50→23:40)
[2022-03-29] MEDS: SUCRALFATE 1 GM/10 ML ORAL SUSP PO SCH ×4 (06:12→21:43)
[2022-03-29 06:36] LABS: Basophils # (auto) 0 10 ^3/uL (0-0.2); Basophils % (auto) 0.6 % (0.0-2.0); Eosinophils # (auto) 0.1 10 ^3/uL (0-0.8); Hematocrit 24.8 % (41.0-53.0); Hemoglobin 8.3 g/dL (13.5-17.5); Lymphocytes # (auto) 0.6 10 ^3/uL (0.4-5.4); Lymphocytes % (auto) 9.9 % (10.0-50.0); Mean Corpuscular Hgb Conc. 33.5 g/dL (32.0-36.0); Mean Corpuscular Volume 89.4 fL (80.0-100.0); Monocytes # (auto) 0.4 10 ^3/uL (0-1.3); Monocytes % (auto) 6.3 % (0.0-12.0); Neutrophils # (auto) 4.7 10 ^3/uL (1.6-8.6); Neutrophils % (auto) 82.2 % (37.0-80.0); Nucleated Red Blood Cells % 0.3 %; Red Blood Cells 2.77 10^6/uL (4.5-5.90); Red Cell Distribution Width 16.3 % (11.8-14.3); White Blood Cell 5.7 10^3/uL (4.4-10.8)
[2022-03-29 06:44] LABS: Albumin 1.9 g/dL (3.4-5.0); Calcium 7.5 mg/dL (8.5-10.1); Magnesium 1.8 mg/dL (1.6-2.6); Potassium 3.5 mmol/L (3.5-5.1)
[2022-03-29 06:48] LABS: BUN/Creatinine Ratio 26.3; Bilirubin, Total 0.6 mg/dL (0.2-1.0); Phosphorus 3.6 mg/dL (2.5-4.90); Total Protein 5.2 g/dL (6.4-8.2)
[2022-03-29] MEDS: amLODIPine BESYLATE 5 MG TAB PO SCH (09:48)
[2022-03-29] MEDS: CLARITHROMYCIN 500 MG TAB PO SCH ×2 (09:48→21:43)
[2022-03-29] MEDS: SODIUM CHLOR 0.9% PF (SALINE LOCK) 10ML VIAL/SYR IV SCH ×2 (09:48→21:44)
[2022-03-29] MEDS: AMOXICILLIN TRIHYDRATE 250 MG CAP PO SCH ×2 (09:48→21:43)
[2022-03-29] MEDS ORDERED: cefTRIAXone 1GM/50ML D5W 50 ML IV ONE (10:00)
[2022-03-29] MEDS: HYDROcodone-ACET 7.5/325MG TAB PO PRN ×2 (10:51→21:49)
[2022-03-29] MEDS ORDERED: FUROSEMIDE 40 MG/4 ML VIAL IV ONE (11:45)
[2022-03-29] MEDS: SODIUM FERR GLUC 62.5MG/5ML 125 MG in SODIUM CHL 0.9% 100 ML IV SCH (12:08)
[2022-03-29] MEDS: TAMSULOSIN HYDROCHLORIDE 0.4 MG CAP PO SCH (17:26)
[2022-03-29] MEDS: AMINO ACID INFUSION IN D10W 1,000 ML IV SCH (21:44)
[2022-03-29] MEDS: CLINIMIX PER PHARMACY IV NR (21:44)
[2022-03-30] VITALS (11 sets, daily range): BP systolic 107–148; BP diastolic 39–87
[2022-03-30] MEDS: PANTOPRAZOLE 40mg/50ML NS AE 50 ML IV SCH ×5 (02:53→20:15)
[2022-03-30] MEDS: InsuLIN REG 1unit/0.01ml Soln (100units/ml) SC SCH ×3 (06:00→18:00)
[2022-03-30 06:10] LABS: Hematocrit 21.1 % (41.0-53.0); Mean Corpuscular Hgb Conc. 33.4 g/dL (32.0-36.0); Mean Corpuscular Volume 89.8 fL (80.0-100.0); Red Blood Cells 2.35 10^6/uL (4.5-5.90); Red Cell Distribution Width 16.7 % (11.8-14.3); White Blood Cell 6.4 10^3/uL (4.4-10.8)
[2022-03-30] MEDS: ACCU-CHEK COMFORT CURVE STRIP VI SCH ×3 (06:19→18:07)
[2022-03-30] MEDS: SUCRALFATE 1 GM/10 ML ORAL SUSP PO SCH ×4 (06:19→21:39)
[2022-03-30] MEDS: HYDROcodone-ACET 7.5/325MG TAB PO PRN (06:22)
[2022-03-30 06:28] LABS: Basophils % (manual) 0 (0.0-2.0); Blast Cells 0; Eosinophils % (manual) 0 (0-7); Metamyelocytes % 0; Promyelocytes % 0; Reactive Lymphocytes 0
[2022-03-30 06:31] LABS: Potassium 3.3 mmol/L (3.5-5.1)
[2022-03-30 06:40] LABS: Albumin 1.7 g/dL (3.4-5.0); BUN/Creatinine Ratio 27.3; Calcium 7.3 mg/dL (8.5-10.1); Magnesium 1.6 mg/dL (1.6-2.6)
[2022-03-30 07:45] LABS: Band Neutrophils % (manual) 1; Lymphocytes % (manual) 19 (10.0-50.0); Monocytes % (manual) 3 (0-12); Myelocytes % 1
[2022-03-30] MEDS ORDERED: MAGNESIUM SULFATE 1GM/100ML 100 ML IV ONE (09:15)
[2022-03-30] MEDS ORDERED: POTASSIUM CHL 20MEQ/100ML 100 ML IV ONE ×3 (09:15→13:30)
[2022-03-30] MEDS: cefTRIAXone 1GM/50ML D5W 50 ML IV SCH (09:22)
[2022-03-30] MEDS: amLODIPine BESYLATE 5 MG TAB PO SCH (09:23)
[2022-03-30] MEDS: CLARITHROMYCIN 500 MG TAB PO SCH ×2 (09:24→21:40)
[2022-03-30] MEDS: AMOXICILLIN TRIHYDRATE 250 MG CAP PO SCH ×2 (09:24→21:40)
[2022-03-30] MEDS: SODIUM FERR GLUC 62.5MG/5ML 125 MG in SODIUM CHL 0.9% 100 ML IV SCH (12:00)
[2022-03-30] MEDS: SODIUM CHLOR 0.9% PF (SALINE LOCK) 10ML VIAL/SYR IV SCH ×2 (12:10→22:00)
[2022-03-30] MEDS ORDERED: METOCLOPRAMIDE HCL 5MG/ml INJ 2ml VIAL IV ONE (13:00)
[2022-03-30] MEDS ORDERED: SODIUM BICARBONATE 650 MG TAB PO ONE (13:00)
[2022-03-30] MEDS ORDERED: EPINEPHrine HCL 1 MG/10 ML SYRG ONE (14:59)
[2022-03-30] MEDS ORDERED: MIDAZOLAM HCL 2MG/2ML 2ml VIAL (1mg/ml) ONE (15:02)
[2022-03-30] MEDS ORDERED: fentaNYL CITRATE 100 MCG/2 ML VL ONE (15:02)
[2022-03-30] MEDS ORDERED: ONDANSETRON HCL 4 MG/2 ML VIAL ONE (15:03)
[2022-03-30] MEDS ORDERED: LIDOCAINE 2% (LOCAL ANESTH.) PF 5ml SDV ONE (15:03)
[2022-03-30] MEDS ORDERED: PROPOFOL 10 MG/ML 20 ML IV ONE (15:19)
[2022-03-30] MEDS ORDERED: GOLYTELY 4L KIT PO ONE (15:30)
[2022-03-30] MEDS ORDERED: ONDANSETRON HCL 4 MG/2 ML VIAL IV PRN (15:45)
[2022-03-30] MEDS: TAMSULOSIN HYDROCHLORIDE 0.4 MG CAP PO SCH (18:06)
[2022-03-30] MEDS: AMINO ACID INFUSION IN D10W 1,000 ML IV SCH (19:49)
[2022-03-30] MEDS: SODIUM BICARBONATE 650 MG TAB PO SCH (21:39)
[2022-03-31] VITALS (11 sets, daily range): BP systolic 83–146; BP diastolic 36–62
[2022-03-31] MEDS: ACCU-CHEK COMFORT CURVE STRIP VI SCH ×4 (00:49→17:53)
[2022-03-31] MEDS: PANTOPRAZOLE 40mg/50ML NS AE 50 ML IV SCH ×5 (01:15→21:54)
[2022-03-31] MEDS: InsuLIN REG 1unit/0.01ml Soln (100units/ml) SC SCH ×4 (05:43→17:53)
[2022-03-31] MEDS ORDERED: GOLYTELY 4L KIT PO ONE (06:00)
[2022-03-31] MEDS: SUCRALFATE 1 GM/10 ML ORAL SUSP PO SCH ×4 (06:01→21:59)
[2022-03-31] MEDS: cefTRIAXone 1GM/50ML D5W 50 ML IV SCH (09:00)
[2022-03-31] MEDS: amLODIPine BESYLATE 5 MG TAB PO SCH (10:11)
[2022-03-31] MEDS: CLARITHROMYCIN 500 MG TAB PO SCH ×2 (10:11→22:29)
[2022-03-31] MEDS: SODIUM BICARBONATE 650 MG TAB PO SCH ×2 (10:11→21:56)
[2022-03-31] MEDS: AMOXICILLIN TRIHYDRATE 250 MG CAP PO SCH ×2 (10:11→21:55)
[2022-03-31] MEDS: SODIUM CHLOR 0.9% PF (SALINE LOCK) 10ML VIAL/SYR IV SCH ×2 (10:11→21:55)
[2022-03-31 10:20] LABS: Albumin 1.7 g/dL (3.4-5.0); BUN/Creatinine Ratio 23.5; Calcium 7.5 mg/dL (8.5-10.1); Magnesium 1.6 mg/dL (1.6-2.6); Phosphorus 2.7 mg/dL (2.5-4.90); Potassium 3.1 mmol/L (3.5-5.1)
[2022-03-31 10:27] LABS: Basophils # (auto) 0 10 ^3/uL (0-0.2); Eosinophils # (auto) 0.1 10 ^3/uL (0-0.8); Hemoglobin 7.5 g/dL (13.5-17.5); Lymphocytes # (auto) 0.7 10 ^3/uL (0.4-5.4); Monocytes # (auto) 0.4 10 ^3/uL (0-1.3); Nucleated Red Blood Cells % 0.1 %
[2022-03-31 10:38] LABS: Basophils % (auto) 0.6 % (0.0-2.0); Eosinophils % (auto) 1.5 % (0.0-7.0); Hematocrit 22.8 % (41.0-53.0); Mean Corpuscular Hemoglobin 30.1 pg (28.0-32.0); Mean Corpuscular Hgb Conc. 33.1 g/dL (32.0-36.0); Mean Corpuscular Volume 90.8 fL (80.0-100.0); Monocytes % (auto) 8.3 % (0.0-12.0); Neutrophils # (auto) 3.7 10 ^3/uL (1.6-8.6); Neutrophils % (auto) 75.6 % (37.0-80.0); Red Blood Cells 2.51 10^6/uL (4.5-5.90); Red Cell Distribution Width 17.3 % (11.8-14.3); White Blood Cell 4.9 10^3/uL (4.4-10.8)
[2022-03-31] MEDS: SODIUM FERR GLUC 62.5MG/5ML 125 MG in SODIUM CHL 0.9% 100 ML IV SCH (12:32)
[2022-03-31] MEDS ORDERED: POTASSIUM PHOSPHATE 22 MEQ in SODIUM CHL 0.9% 100 ML IV ONE (12:45)
[2022-03-31] MEDS: TAMSULOSIN HYDROCHLORIDE 0.4 MG CAP PO SCH (17:53)
[2022-03-31] MEDS: AMINO ACID INFUSION IN D10W 1,000 ML IV SCH (20:48)
[2022-04-01] VITALS (42 sets, daily range): BP systolic 85–131; BP diastolic 30–72
[2022-04-01] MEDS: ACCU-CHEK COMFORT CURVE STRIP VI SCH ×4 (00:55→18:19)
[2022-04-01] MEDS: PANTOPRAZOLE 40mg/50ML NS AE 50 ML IV SCH ×6 (02:59→21:46)
[2022-04-01] MEDS: InsuLIN REG 1unit/0.01ml Soln (100units/ml) SC SCH ×4 (05:49→18:00)
[2022-04-01] MEDS: SUCRALFATE 1 GM/10 ML ORAL SUSP PO SCH ×4 (06:17→21:45)
[2022-04-01 06:35] LABS: Hematocrit 14.9 % (41.0-53.0); Mean Corpuscular Hemoglobin 30.8 pg (28.0-32.0); Mean Corpuscular Hgb Conc. 34.3 g/dL (32.0-36.0); Mean Corpuscular Volume 89.8 fL (80.0-100.0); Red Blood Cells 1.66 10^6/uL (4.5-5.90); Red Cell Distribution Width 17.8 % (11.8-14.3); White Blood Cell 4.6 10^3/uL (4.4-10.8)
[2022-04-01 06:36] LABS: Albumin 1.6 g/dL (3.4-5.0); BUN/Creatinine Ratio 22.3; Calcium 7.2 mg/dL (8.5-10.1); Magnesium 1.6 mg/dL (1.6-2.6); Potassium 3.1 mmol/L (3.5-5.1)
[2022-04-01 06:43] LABS: Bilirubin, Total 0.4 mg/dL (0.2-1.0); Phosphorus 3.5 mg/dL (2.5-4.90); Total Protein 4.4 g/dL (6.4-8.2)
[2022-04-01 06:54] LABS: Hemoglobin 5.1 g/dL (13.5-17.5)
[2022-04-01 06:56] LABS: Basophils % (manual) 0 (0.0-2.0); Blast Cells 0; Eosinophils % (manual) 0 (0-7); Myelocytes % 0; Promyelocytes % 0; Reactive Lymphocytes 0
[2022-04-01 08:25] LABS: Band Neutrophils % (manual) 7; Lymphocytes % (manual) 29 (10.0-50.0); Metamyelocytes % 1; Monocytes % (manual) 1 (0-12)
[2022-04-01] MEDS: POTASSIUM CHL 20MEQ/100ML 100 ML IV SCH ×2 (08:45→12:52)
[2022-04-01] MEDS: cefTRIAXone 1GM/50ML D5W 50 ML IV SCH ×2 (09:00→21:39)
[2022-04-01] MEDS ORDERED: MAGNESIUM SULFATE 1GM/100ML 100 ML IV ONE (09:00)
[2022-04-01] MEDS: amLODIPine BESYLATE 5 MG TAB PO SCH (10:00)
[2022-04-01] MEDS: CLARITHROMYCIN 500 MG TAB PO SCH ×2 (10:00→21:46)
[2022-04-01] MEDS: SODIUM CHLOR 0.9% PF (SALINE LOCK) 10ML VIAL/SYR IV SCH ×2 (10:00→21:45)
[2022-04-01] MEDS: AMOXICILLIN TRIHYDRATE 250 MG CAP PO SCH ×2 (10:00→21:45)
[2022-04-01] MEDS: SODIUM BICARBONATE 650 MG TAB PO SCH ×2 (12:53→21:45)
[2022-04-01] MEDS: TAMSULOSIN HYDROCHLORIDE 0.4 MG CAP PO SCH (18:00)
[2022-04-01] MEDS: SODIUM FERR GLUC 62.5MG/5ML 125 MG in SODIUM CHL 0.9% 100 ML IV SCH (19:00)
[2022-04-01] MEDS: AMINO ACID INFUSION IN D10W 1,000 ML IV SCH (20:56)
[2022-04-01] MEDS: OCTREOTIDE ACETATE 500 MCG in SODIUM CHL 0.9% 99 ML IV SCH (22:02)
[2022-04-02] VITALS (37 sets, daily range): BP systolic 91–149; BP diastolic 31–73
[2022-04-02] MEDS: ACCU-CHEK COMFORT CURVE STRIP VI SCH ×4 (00:27→18:00)
[2022-04-02] MEDS: PANTOPRAZOLE 40mg/50ML NS AE 50 ML IV SCH ×4 (03:40→23:15)
[2022-04-02 04:49] LABS: Basophils # (auto) 0 10 ^3/uL (0-0.2); Basophils % (auto) 0.9 % (0.0-2.0); Eosinophils # (auto) 0.1 10 ^3/uL (0-0.8); Hemoglobin 7.1 g/dL (13.5-17.5); Lymphocytes # (auto) 0.8 10 ^3/uL (0.4-5.4)
[2022-04-02 04:53] LABS: Hematocrit 21.2 % (41.0-53.0); Lymphocytes % (auto) 19.6 % (10.0-50.0); Mean Corpuscular Hemoglobin 30.2 pg (28.0-32.0); Mean Corpuscular Hgb Conc. 33.6 g/dL (32.0-36.0); Mean Corpuscular Volume 89.9 fL (80.0-100.0); Monocytes # (auto) 0.3 10 ^3/uL (0-1.3); Monocytes % (auto) 8.4 % (0.0-12.0); Neutrophils # (auto) 2.7 10 ^3/uL (1.6-8.6); Neutrophils % (auto) 68.1 % (37.0-80.0); Nucleated Red Blood Cells % 0.1 %; Red Blood Cells 2.36 10^6/uL (4.5-5.90); Red Cell Distribution Width 16.5 % (11.8-14.3)
[2022-04-02 05:04] LABS: Albumin 1.9 g/dL (3.4-5.0); Calcium 7.3 mg/dL (8.5-10.1); Magnesium 1.7 mg/dL (1.6-2.6); Potassium 3.6 mmol/L (3.5-5.1)
[2022-04-02 05:08] LABS: BUN/Creatinine Ratio 22.4; Bilirubin, Total 0.4 mg/dL (0.2-1.0); Phosphorus 3.4 mg/dL (2.5-4.90); Total Protein 5.2 g/dL (6.4-8.2)
[2022-04-02] MEDS: InsuLIN REG 1unit/0.01ml Soln (100units/ml) SC SCH ×4 (05:49→18:00)
[2022-04-02] MEDS: OCTREOTIDE ACETATE 500 MCG in SODIUM CHL 0.9% 99 ML IV SCH ×2 (06:36→16:27)
[2022-04-02] MEDS: SUCRALFATE 1 GM/10 ML ORAL SUSP PO SCH ×4 (06:36→22:43)
[2022-04-02] MEDS: SODIUM CHLOR 0.9% PF (SALINE LOCK) 10ML VIAL/SYR IV SCH ×2 (09:47→22:43)
[2022-04-02] MEDS: cefTRIAXone 1GM/50ML D5W 50 ML IV SCH (11:44)
[2022-04-02] MEDS: HYDROcodone-ACET 7.5/325MG TAB PO PRN (11:56)
[2022-04-02] MEDS: SODIUM BICARBONATE 650 MG TAB PO SCH ×3 (11:56→22:56)
[2022-04-02] MEDS: amLODIPine BESYLATE 5 MG TAB PO SCH (11:57)
[2022-04-02] MEDS: CLARITHROMYCIN 500 MG TAB PO SCH ×2 (12:13→22:43)
[2022-04-02] MEDS: AMOXICILLIN TRIHYDRATE 250 MG CAP PO SCH ×2 (12:14→22:00)
[2022-04-02] MEDS: AMINO ACID INFUSION IN D10W 1,000 ML IV SCH (13:58)
[2022-04-02] MEDS: SODIUM FERR GLUC 62.5MG/5ML 125 MG in SODIUM CHL 0.9% 100 ML IV SCH (15:00)
[2022-04-02] MEDS: TAMSULOSIN HYDROCHLORIDE 0.4 MG CAP PO SCH (17:37)
[2022-04-03] VITALS (54 sets, daily range): BP systolic 68–152; BP diastolic 25–67
[2022-04-03] MEDS: OCTREOTIDE ACETATE 500 MCG in SODIUM CHL 0.9% 99 ML IV SCH ×2 (03:15→13:15)
[2022-04-03 04:58] LABS: Basophils # (auto) 0 10 ^3/uL (0-0.2); Eosinophils # (auto) 0.1 10 ^3/uL (0-0.8); Hemoglobin 7.3 g/dL (13.5-17.5); Lymphocytes # (auto) 0.6 10 ^3/uL (0.4-5.4); Monocytes # (auto) 0.3 10 ^3/uL (0-1.3); White Blood Cell 4.8 10^3/uL (4.4-10.8)
[2022-04-03 04:59] LABS: Basophils % (auto) 0.6 % (0.0-2.0); Eosinophils % (auto) 1.5 % (0.0-7.0); Lymphocytes % (auto) 12.6 % (10.0-50.0); Mean Corpuscular Hemoglobin 30.4 pg (28.0-32.0); Mean Corpuscular Hgb Conc. 33.4 g/dL (32.0-36.0); Monocytes % (auto) 6.8 % (0.0-12.0); Neutrophils # (auto) 3.7 10 ^3/uL (1.6-8.6); Neutrophils % (auto) 78.5 % (37.0-80.0); Red Blood Cells 2.41 10^6/uL (4.5-5.90); Red Cell Distribution Width 17.1 % (11.8-14.3)
[2022-04-03 05:12] LABS: Potassium 3.6 mmol/L (3.5-5.1)
[2022-04-03 05:19] LABS: Albumin 1.8 g/dL (3.4-5.0); BUN/Creatinine Ratio 21.7; Bilirubin, Total 0.6 mg/dL (0.2-1.0); Calcium 7.2 mg/dL (8.5-10.1); Magnesium 1.6 mg/dL (1.6-2.6); Phosphorus 2.9 mg/dL (2.5-4.90); Total Protein 5.2 g/dL (6.4-8.2)
[2022-04-03] MEDS: ACCU-CHEK COMFORT CURVE STRIP VI SCH ×4 (06:00→18:28)
[2022-04-03] MEDS: SUCRALFATE 1 GM/10 ML ORAL SUSP PO SCH ×4 (07:00→21:22)
[2022-04-03] MEDS: InsuLIN REG 1unit/0.01ml Soln (100units/ml) SC SCH ×4 (07:00→17:45)
[2022-04-03] MEDS: cefTRIAXone 1GM/50ML D5W 50 ML IV SCH (09:40)
[2022-04-03] MEDS: PANTOPRAZOLE 40mg/50ML NS AE 50 ML IV SCH ×2 (09:40→14:15)
[2022-04-03] MEDS: amLODIPine BESYLATE 5 MG TAB PO SCH (10:00)
[2022-04-03] MEDS: SODIUM CHLOR 0.9% PF (SALINE LOCK) 10ML VIAL/SYR IV SCH ×2 (10:00→21:18)
[2022-04-03] MEDS: CLARITHROMYCIN 500 MG TAB PO SCH ×2 (10:19→21:23)
[2022-04-03] MEDS: SODIUM BICARBONATE 650 MG TAB PO SCH ×2 (11:15→21:23)
[2022-04-03] MEDS: AMOXICILLIN TRIHYDRATE 250 MG CAP PO SCH ×2 (11:16→21:36)
[2022-04-03] MEDS: HYDROcodone-ACET 7.5/325MG TAB PO PRN ×2 (11:16→19:30)
[2022-04-03] MEDS: SODIUM FERR GLUC 62.5MG/5ML 125 MG in SODIUM CHL 0.9% 100 ML IV SCH (12:00)
[2022-04-03] MEDS ORDERED: NOREPINEPHRINE 8 MG/250ML KIT 250 ML IV ONE (12:41)
[2022-04-03] MEDS: NOREPINEPHRINE 8 MG/250ML KIT 250 ML IV SCH (12:45)
[2022-04-03 15:17] LABS: Hematocrit 19.9 % (41.0-53.0); Mean Corpuscular Hemoglobin 30.6 pg (28.0-32.0); Mean Corpuscular Hgb Conc. 33.1 g/dL (32.0-36.0); Mean Corpuscular Volume 92.5 fL (80.0-100.0); Red Blood Cells 2.15 10^6/uL (4.5-5.90); Red Cell Distribution Width 17.8 % (11.8-14.3); White Blood Cell 5.4 10^3/uL (4.4-10.8)
[2022-04-03 15:26] LABS: Hemoglobin 6.6 g/dL (13.5-17.5)
[2022-04-03 15:28] LABS: Basophils % (manual) 0 (0.0-2.0); Blast Cells 0; Myelocytes % 0; Promyelocytes % 0; Reactive Lymphocytes 0
[2022-04-03 16:23] LABS: Band Neutrophils % (manual) 3; Eosinophils % (manual) 2 (0-7); Lymphocytes % (manual) 12 (10.0-50.0); Metamyelocytes % 2; Monocytes % (manual) 3 (0-12)
[2022-04-03] MEDS ORDERED: FUROSEMIDE 20 MG/2 ML VIAL IV ONE (18:15)
[2022-04-03] MEDS: TAMSULOSIN HYDROCHLORIDE 0.4 MG CAP PO SCH (18:28)
[2022-04-03] MEDS: AMINO ACID INFUSION IN D10W 1,000 ML IV SCH (19:05)
[2022-04-03 22:01] LABS: Hematocrit 16.3 % (41.0-53.0)
[2022-04-03 22:07] LABS: Hemoglobin 5.5 g/dL (13.5-17.5)
[2022-04-04] VITALS (100 sets, daily range): BP systolic 67–163; BP diastolic 23–119
[2022-04-04] MEDS ORDERED: VASOPRESSIN 20 UNIT/ML ONE ×3 (05:24→22:31)
[2022-04-04] MEDS ORDERED: VASOPRESSIN 50 UNITS in D5W 5% 247.5 ML IV SCH (05:30)
[2022-04-04] MEDS ORDERED: SODIUM CHLORIDE 0.9% 1,000 ML IV SCH (05:45)
[2022-04-04] MEDS: InsuLIN REG 1unit/0.01ml Soln (100units/ml) SC SCH ×4 (06:00→18:00)
[2022-04-04] MEDS: ACCU-CHEK COMFORT CURVE STRIP VI SCH ×4 (06:00→18:00)
[2022-04-04] MEDS ORDERED: SODIUM BICARBONATE 8.4 % INJ 50ML VIAL IV ONE (06:30)
[2022-04-04] MEDS ORDERED: SODIUM BICARBONATE 8.4% INJ 50ML SYRINGE ONE ×2 (06:31)
[2022-04-04 07:05] LABS: Hemoglobin 8.3 g/dL (13.5-17.5); Mean Corpuscular Volume 90.3 fL (80.0-100.0)
[2022-04-04 07:12] LABS: Hematocrit 25.3 % (41.0-53.0); Mean Corpuscular Hemoglobin 29.7 pg (28.0-32.0); Mean Corpuscular Hgb Conc. 32.9 g/dL (32.0-36.0); Red Cell Distribution Width 15.7 % (11.8-14.3)
[2022-04-04 07:16] LABS: Potassium 3.7 mmol/L (3.5-5.1)
[2022-04-04 07:34] LABS: Albumin 1.6 g/dL (3.4-5.0); BUN/Creatinine Ratio 19.8; Bilirubin, Total 0.8 mg/dL (0.2-1.0); Calcium 7.1 mg/dL (8.5-10.1); Magnesium 1.7 mg/dL (1.6-2.6); Phosphorus 3.5 mg/dL (2.5-4.90); Total Protein 4.5 g/dL (6.4-8.2)
[2022-04-04] MEDS: SUCRALFATE 1 GM/10 ML ORAL SUSP PO SCH ×4 (07:44→22:30)
[2022-04-04] MEDS: HYDROcodone-ACET 7.5/325MG TAB PO PRN ×2 (07:44→22:57)
[2022-04-04 07:59] LABS: Basophils % (manual) 0 (0.0-2.0); Blast Cells 0; Promyelocytes % 0; Reactive Lymphocytes 0
[2022-04-04] MEDS: VASOPRESSIN 50 UNITS in D5W 5% 247.5 ML IV SCH ×3 (09:50→18:15)
[2022-04-04] MEDS: amLODIPine BESYLATE 5 MG TAB PO SCH (09:53)
[2022-04-04] MEDS: SODIUM CHLOR 0.9% PF (SALINE LOCK) 10ML VIAL/SYR IV SCH ×2 (10:00→22:30)
[2022-04-04] MEDS: cefTRIAXone 1GM/50ML D5W 50 ML IV SCH (10:00)
[2022-04-04] MEDS: SODIUM BICARBONATE 650 MG TAB PO SCH ×2 (10:00→22:30)
[2022-04-04] MEDS: CLARITHROMYCIN 500 MG TAB PO SCH ×2 (10:02→22:30)
[2022-04-04] MEDS: AMOXICILLIN TRIHYDRATE 250 MG CAP PO SCH ×2 (10:02→22:50)
[2022-04-04 10:03] LABS: Eosinophils # (auto) 0 10 ^3/uL (0-0.8); Eosinophils % (auto) 0.1 % (0.0-7.0); Hemoglobin 7.6 g/dL (13.5-17.5); Lymphocytes # (auto) 0.8 10 ^3/uL (0.4-5.4); Neutrophils # (auto) 7.8 10 ^3/uL (1.6-8.6); White Blood Cell 9.3 10^3/uL (4.4-10.8)
[2022-04-04 10:06] LABS: Basophils # (auto) 0 10 ^3/uL (0-0.2); Basophils % (auto) 0.4 % (0.0-2.0); Hematocrit 23.5 % (41.0-53.0); Lymphocytes % (auto) 8.8 % (10.0-50.0); Mean Corpuscular Hemoglobin 29.5 pg (28.0-32.0); Mean Corpuscular Hgb Conc. 32.4 g/dL (32.0-36.0); Mean Corpuscular Volume 90.9 fL (80.0-100.0); Monocytes # (auto) 0.5 10 ^3/uL (0-1.3); Monocytes % (auto) 5.9 % (0.0-12.0); Neutrophils % (auto) 84.8 % (37.0-80.0); Nucleated Red Blood Cells % 0.1 %; Red Blood Cells 2.58 10^6/uL (4.5-5.90); Red Cell Distribution Width 16.2 % (11.8-14.3)
[2022-04-04 10:39] LABS: INR 1.5 (0.9-1.15); Partial Thromboplastin Time 45.8 sec (24.6-33.4)
[2022-04-04] MEDS: OCTREOTIDE ACETATE 500 MCG in SODIUM CHL 0.9% 99 ML IV SCH ×2 (11:14→19:15)
[2022-04-04] MEDS: AMINO ACID INFUSION IN D10W 1,000 ML IV SCH (11:23)
[2022-04-04] MEDS: NOREPINEPHRINE 8 MG/250ML KIT 250 ML IV SCH (12:00)
[2022-04-04] MEDS: SODIUM FERR GLUC 62.5MG/5ML 125 MG in SODIUM CHL 0.9% 100 ML IV SCH (12:00)
[2022-04-04] MEDS: SODIUM CHLORIDE 0.9% 1,000 ML IV SCH (13:30)
[2022-04-04] MEDS ORDERED: FUROSEMIDE 40 MG/4 ML VIAL IV ONE (13:30)
[2022-04-04] MEDS: PHENYLEPHRINE IV 250 ML IV SCH ×2 (14:05→22:25)
[2022-04-04 14:49] LABS: Band Neutrophils % (manual) 1; Eosinophils % (manual) 2 (0-7); Lymphocytes % (manual) 23 (10.0-50.0); Metamyelocytes % 1; Monocytes % (manual) 6 (0-12); Myelocytes % 2
[2022-04-04] MEDS: TAMSULOSIN HYDROCHLORIDE 0.4 MG CAP PO SCH (18:00)
[2022-04-04 22:25] LABS: Hematocrit 23.8 % (41.0-53.0)
[2022-04-04] MEDS: PANTOPRAZOLE 40 MG/10 ML VIAL INJ IV SCH (22:30)
[2022-04-04] MEDS ORDERED: phytonadione 10 MG in SODIUM CHL 0.9% 50 ML IV ONE (23:15)
[2022-04-05] VITALS (92 sets, daily range): BP systolic 96–153; BP diastolic 17–123
[2022-04-05] MEDS: InsuLIN REG 1unit/0.01ml Soln (100units/ml) SC SCH ×4 (01:00→18:03)
[2022-04-05] MEDS: ACCU-CHEK COMFORT CURVE STRIP VI SCH ×4 (01:00→18:02)
[2022-04-05] MEDS: OCTREOTIDE ACETATE 500 MCG in SODIUM CHL 0.9% 99 ML IV SCH ×2 (05:15→17:42)
[2022-04-05 06:18] LABS: Hematocrit 20.7 % (41.0-53.0); Hemoglobin 7.2 g/dL (13.5-17.5); Mean Corpuscular Hemoglobin 31.6 pg (28.0-32.0); Mean Corpuscular Hgb Conc. 34.9 g/dL (32.0-36.0); Mean Corpuscular Volume 90.6 fL (80.0-100.0); Red Blood Cells 2.28 10^6/uL (4.5-5.90); Red Cell Distribution Width 16.9 % (11.8-14.3)
[2022-04-05] MEDS ORDERED: phytonadione 1 ML ONE (06:19)
[2022-04-05 06:29] LABS: Albumin 1.5 g/dL (3.4-5.0); BUN/Creatinine Ratio 20.5; Calcium 6.5 mg/dL (8.5-10.1); Magnesium 1.4 mg/dL (1.6-2.6); Potassium 3.3 mmol/L (3.5-5.1)
[2022-04-05 06:33] LABS: Bilirubin, Total 0.6 mg/dL (0.2-1.0)
[2022-04-05] MEDS: PHENYLEPHRINE IV 250 ML IV SCH ×3 (06:45→23:25)
[2022-04-05] MEDS: VASOPRESSIN 50 UNITS in D5W 5% 247.5 ML IV SCH ×5 (06:46→19:24)
[2022-04-05] MEDS: SUCRALFATE 1 GM/10 ML ORAL SUSP PO SCH ×4 (06:47→21:27)
[2022-04-05] MEDS: SODIUM CHLORIDE 0.9% 1,000 ML IV SCH ×2 (06:50→09:15)
[2022-04-05 07:39] LABS: Band Neutrophils % (manual) 0; Basophils % (manual) 0 (0.0-2.0); Blast Cells 0; Myelocytes % 0; Promyelocytes % 0; Reactive Lymphocytes 0
[2022-04-05] MEDS ORDERED: POTASSIUM CHL 20MEQ/100ML 100 ML IV ONE (08:45)
[2022-04-05] MEDS ORDERED: CALCIUM GLUC 1,000mg/50ml-NS 50 ML IV ONE (08:45)
[2022-04-05] MEDS ORDERED: FUROSEMIDE 40 MG/4 ML VIAL IV ONE (09:15)
[2022-04-05] MEDS: amLODIPine BESYLATE 5 MG TAB PO SCH (09:34)
[2022-04-05] MEDS: MAGNESIUM SULFATE 1GM/100ML 100 ML IV SCH ×2 (09:55→11:13)
[2022-04-05] MEDS: SODIUM BICARBONATE 650 MG TAB PO SCH ×2 (10:04→21:28)
[2022-04-05] MEDS: PANTOPRAZOLE 40 MG/10 ML VIAL INJ IV SCH ×2 (10:04→21:27)
[2022-04-05] MEDS: SODIUM CHLOR 0.9% PF (SALINE LOCK) 10ML VIAL/SYR IV SCH ×2 (11:13→21:32)
[2022-04-05] MEDS: CLARITHROMYCIN 500 MG TAB PO SCH ×2 (11:19→21:31)
[2022-04-05] MEDS: AMOXICILLIN TRIHYDRATE 250 MG CAP PO SCH ×2 (11:32→21:31)
[2022-04-05] MEDS ORDERED: phytonadione 10 MG in SODIUM CHL 0.9% 50 ML IV ONE (12:00)
[2022-04-05 12:21] LABS: Eosinophils % (manual) 1 (0-7); Lymphocytes % (manual) 10 (10.0-50.0); Metamyelocytes % 1; Monocytes % (manual) 2 (0-12)
[2022-04-05] MEDS: NOREPINEPHRINE 8 MG/250ML KIT 250 ML IV SCH (12:45)
[2022-04-05] MEDS: SODIUM FERR GLUC 62.5MG/5ML 125 MG in SODIUM CHL 0.9% 100 ML IV SCH (15:38)
[2022-04-05] MEDS: TAMSULOSIN HYDROCHLORIDE 0.4 MG CAP PO SCH (17:56)
[2022-04-05] MEDS: AMINO ACID INFUSION IN D10W 1,000 ML IV SCH (21:27)
[2022-04-06] VITALS (88 sets, daily range): BP systolic 113–174; BP diastolic 14–147
[2022-04-06] MEDS: VASOPRESSIN 50 UNITS in D5W 5% 247.5 ML IV SCH ×6 (02:08→20:24)
[2022-04-06] MEDS: NOREPINEPHRINE 8 MG/250ML KIT 250 ML IV SCH (02:09)
[2022-04-06] MEDS: SODIUM CHLORIDE 0.9% 1,000 ML IV SCH (02:09)
[2022-04-06 05:23] LABS: Basophils # (auto) 0 10 ^3/uL (0-0.2); Basophils % (auto) 0.5 % (0.0-2.0); Eosinophils # (auto) 0.1 10 ^3/uL (0-0.8); Eosinophils % (auto) 1.6 % (0.0-7.0); Hematocrit 26.7 % (41.0-53.0); Lymphocytes # (auto) 0.7 10 ^3/uL (0.4-5.4); Lymphocytes % (auto) 13.1 % (10.0-50.0); Mean Corpuscular Hemoglobin 30.8 pg (28.0-32.0); Mean Corpuscular Hgb Conc. 33.8 g/dL (32.0-36.0); Monocytes # (auto) 0.5 10 ^3/uL (0-1.3); Monocytes % (auto) 8.6 % (0.0-12.0); Neutrophils # (auto) 4.3 10 ^3/uL (1.6-8.6); Neutrophils % (auto) 76.2 % (37.0-80.0); Nucleated Red Blood Cells % 0.2 %; Red Blood Cells 2.93 10^6/uL (4.5-5.90); Red Cell Distribution Width 16.4 % (11.8-14.3); White Blood Cell 5.6 10^3/uL (4.4-10.8)
[2022-04-06 05:48] LABS: Albumin 1.5 g/dL (3.4-5.0); BUN/Creatinine Ratio 18.8; Calcium 6.7 mg/dL (8.5-10.1); Magnesium 1.6 mg/dL (1.6-2.6); Phosphorus 2.5 mg/dL (2.5-4.90)
[2022-04-06] MEDS: OCTREOTIDE ACETATE 500 MCG in SODIUM CHL 0.9% 99 ML IV SCH ×2 (06:21→10:28)
[2022-04-06] MEDS: ACCU-CHEK COMFORT CURVE STRIP VI SCH ×4 (06:22→18:21)
[2022-04-06] MEDS: InsuLIN REG 1unit/0.01ml Soln (100units/ml) SC SCH ×4 (06:28→18:25)
[2022-04-06] MEDS: HYDROcodone-ACET 7.5/325MG TAB PO PRN ×2 (06:29→14:46)
[2022-04-06] MEDS: SUCRALFATE 1 GM/10 ML ORAL SUSP PO SCH ×4 (06:29→20:25)
[2022-04-06] MEDS: PHENYLEPHRINE IV 250 ML IV SCH ×2 (07:45→16:05)
[2022-04-06] MEDS ORDERED: FUROSEMIDE 40 MG/4 ML VIAL IV ONE (09:30)
[2022-04-06] MEDS: PANTOPRAZOLE 40 MG/10 ML VIAL INJ IV SCH ×2 (09:41→20:25)
[2022-04-06] MEDS: SODIUM CHLOR 0.9% PF (SALINE LOCK) 10ML VIAL/SYR IV SCH ×2 (09:41→20:26)
[2022-04-06] MEDS: POTASSIUM CHL 20MEQ/100ML 100 ML IV SCH ×2 (09:41→12:08)
[2022-04-06] MEDS: amLODIPine BESYLATE 5 MG TAB PO SCH (09:42)
[2022-04-06] MEDS: AMOXICILLIN TRIHYDRATE 250 MG CAP PO SCH ×2 (09:42→20:25)
[2022-04-06] MEDS: SODIUM BICARBONATE 650 MG TAB PO SCH ×2 (09:43→20:25)
[2022-04-06] MEDS: CLARITHROMYCIN 500 MG TAB PO SCH ×2 (09:43→22:31)
[2022-04-06] MEDS: SODIUM FERR GLUC 62.5MG/5ML 125 MG in SODIUM CHL 0.9% 100 ML IV SCH (12:00)
[2022-04-06] MEDS ORDERED: MAGNESIUM SULFATE 1GM/100ML 100 ML IV ONE (12:45)
[2022-04-06] MEDS: TAMSULOSIN HYDROCHLORIDE 0.4 MG CAP PO SCH (17:35)
[2022-04-06] MEDS: AMINO ACID INFUSION IN D10W 1,000 ML IV SCH (20:24)
[2022-04-07] VITALS (56 sets, daily range): BP systolic 87–140; BP diastolic 31–68
[2022-04-07] MEDS: PHENYLEPHRINE IV 250 ML IV SCH ×3 (00:25→17:05)
[2022-04-07] MEDS: OCTREOTIDE ACETATE 500 MCG in SODIUM CHL 0.9% 99 ML IV SCH ×4 (01:25→20:08)
[2022-04-07] MEDS: ACCU-CHEK COMFORT CURVE STRIP VI SCH ×4 (01:25→17:43)
[2022-04-07] MEDS: VASOPRESSIN 50 UNITS in D5W 5% 247.5 ML IV SCH ×2 (01:27→04:35)
[2022-04-07] MEDS: InsuLIN REG 1unit/0.01ml Soln (100units/ml) SC SCH ×4 (01:35→17:43)
[2022-04-07 04:02] LABS: Basophils # (auto) 0 10 ^3/uL (0-0.2); Basophils % (auto) 0.4 % (0.0-2.0); Eosinophils # (auto) 0.1 10 ^3/uL (0-0.8); Eosinophils % (auto) 2.2 % (0.0-7.0); Lymphocytes # (auto) 0.7 10 ^3/uL (0.4-5.4); Lymphocytes % (auto) 12.7 % (10.0-50.0); Mean Corpuscular Hemoglobin 30.1 pg (28.0-32.0); Mean Corpuscular Hgb Conc. 33.3 g/dL (32.0-36.0); Mean Corpuscular Volume 90.3 fL (80.0-100.0); Monocytes # (auto) 0.5 10 ^3/uL (0-1.3); Monocytes % (auto) 8.6 % (0.0-12.0); Neutrophils # (auto) 4.3 10 ^3/uL (1.6-8.6); Neutrophils % (auto) 76.1 % (37.0-80.0); Nucleated Red Blood Cells % 0.3 %; Red Blood Cells 2.99 10^6/uL (4.5-5.90); Red Cell Distribution Width 16.8 % (11.8-14.3); White Blood Cell 5.6 10^3/uL (4.4-10.8)
[2022-04-07 04:07] LABS: Albumin 1.7 g/dL (3.4-5.0); BUN/Creatinine Ratio 19.2; Calcium 6.9 mg/dL (8.5-10.1); Magnesium 1.8 mg/dL (1.6-2.6)
[2022-04-07 04:09] LABS: Bilirubin, Total 0.6 mg/dL (0.2-1.0); Phosphorus 2.3 mg/dL (2.5-4.90); Total Protein 4.7 g/dL (6.4-8.2)
[2022-04-07] MEDS: SUCRALFATE 1 GM/10 ML ORAL SUSP PO SCH ×4 (05:37→22:20)
[2022-04-07] MEDS ORDERED: POTASSIUM CHL 20MEQ/100ML 100 ML IV ONE ×2 (06:00→09:00)
[2022-04-07] MEDS: SODIUM BICARBONATE 650 MG TAB PO SCH ×2 (09:46→22:20)
[2022-04-07] MEDS: PANTOPRAZOLE 40 MG/10 ML VIAL INJ IV SCH ×2 (09:46→22:20)
[2022-04-07] MEDS: AMOXICILLIN TRIHYDRATE 250 MG CAP PO SCH ×2 (09:46→22:20)
[2022-04-07] MEDS: amLODIPine BESYLATE 5 MG TAB PO SCH (10:00)
[2022-04-07] MEDS: CLARITHROMYCIN 500 MG TAB PO SCH ×2 (10:12→22:21)
[2022-04-07] MEDS: SODIUM CHLOR 0.9% PF (SALINE LOCK) 10ML VIAL/SYR IV SCH ×2 (10:16→22:21)
[2022-04-07] MEDS ORDERED: SODIUM PHOSPHATES 12 MEQ in SODIUM CHL 0.9% 100 ML IV ONE (12:00)
[2022-04-07] MEDS: SODIUM FERR GLUC 62.5MG/5ML 125 MG in SODIUM CHL 0.9% 100 ML IV SCH (12:31)
[2022-04-07] MEDS: NOREPINEPHRINE 8 MG/250ML KIT 250 ML IV SCH (12:45)
[2022-04-07] MEDS: TAMSULOSIN HYDROCHLORIDE 0.4 MG CAP PO SCH (17:43)
[2022-04-07] MEDS: AMINO ACID INFUSION IN D10W 1,000 ML IV SCH (20:09)
[2022-04-08] VITALS (24 sets, daily range): BP systolic 88–133; BP diastolic 41–68
[2022-04-08] MEDS: PHENYLEPHRINE IV 250 ML IV SCH (03:11)
[2022-04-08 04:42] LABS: Albumin 1.6 g/dL (3.4-5.0); BUN/Creatinine Ratio 20.1; Calcium 6.9 mg/dL (8.5-10.1); Magnesium 1.8 mg/dL (1.6-2.6); Potassium 3.4 mmol/L (3.5-5.1)
[2022-04-08 04:45] LABS: Bilirubin, Total 0.6 mg/dL (0.2-1.0); Phosphorus 2.5 mg/dL (2.5-4.90); Total Protein 4.7 g/dL (6.4-8.2)
[2022-04-08] MEDS: InsuLIN REG 1unit/0.01ml Soln (100units/ml) SC SCH ×4 (06:00→17:25)
[2022-04-08] MEDS: SUCRALFATE 1 GM/10 ML ORAL SUSP PO SCH ×4 (06:42→22:06)
[2022-04-08] MEDS: ACCU-CHEK COMFORT CURVE STRIP VI SCH ×4 (06:42→17:25)
[2022-04-08] MEDS: OCTREOTIDE ACETATE 500 MCG in SODIUM CHL 0.9% 99 ML IV SCH ×2 (07:57→17:34)
[2022-04-08] MEDS ORDERED: POTASSIUM CHL 20MEQ/100ML 100 ML IV ONE ×2 (09:15→12:00)
[2022-04-08] MEDS ORDERED: FUROSEMIDE 40 MG/4 ML VIAL IV ONE (09:15)
[2022-04-08] MEDS: AMOXICILLIN TRIHYDRATE 250 MG CAP PO SCH ×2 (09:44→22:05)
[2022-04-08] MEDS: SODIUM CHLOR 0.9% PF (SALINE LOCK) 10ML VIAL/SYR IV SCH ×2 (09:44→22:07)
[2022-04-08] MEDS: SODIUM BICARBONATE 650 MG TAB PO SCH ×2 (09:44→22:05)
[2022-04-08] MEDS: PANTOPRAZOLE 40 MG/10 ML VIAL INJ IV SCH ×2 (09:44→22:07)
[2022-04-08] MEDS: amLODIPine BESYLATE 5 MG TAB PO SCH (09:45)
[2022-04-08] MEDS: CLARITHROMYCIN 500 MG TAB PO SCH ×2 (09:45→22:08)
[2022-04-08 10:33] LABS: Hematocrit 28.8 % (41.0-53.0); Hemoglobin 9.5 g/dL (13.5-17.5); Mean Corpuscular Hemoglobin 30.5 pg (28.0-32.0); Mean Corpuscular Hgb Conc. 32.9 g/dL (32.0-36.0); Mean Corpuscular Volume 92.7 fL (80.0-100.0); Red Cell Distribution Width 16.4 % (11.8-14.3); White Blood Cell 4.7 10^3/uL (4.4-10.8)
[2022-04-08 10:52] LABS: Basophils % (manual) 0 (0.0-2.0); Blast Cells 0; Myelocytes % 0; Reactive Lymphocytes 0
[2022-04-08 11:51] LABS: Band Neutrophils % (manual) 1; Eosinophils % (manual) 1 (0-7); Lymphocytes % (manual) 9 (10.0-50.0); Metamyelocytes % 1; Monocytes % (manual) 7 (0-12); Promyelocytes % 2
[2022-04-08] MEDS: SODIUM FERR GLUC 62.5MG/5ML 125 MG in SODIUM CHL 0.9% 100 ML IV SCH (12:17)
[2022-04-08] MEDS: TAMSULOSIN HYDROCHLORIDE 0.4 MG CAP PO SCH (17:25)
[2022-04-08] MEDS: AMINO ACID INFUSION IN D10W 1,000 ML IV SCH (22:06)
[2022-04-09] VITALS (12 sets, daily range): BP systolic 85–136; BP diastolic 40–64
[2022-04-09] MEDS: ACCU-CHEK COMFORT CURVE STRIP VI SCH ×5 (01:06→23:28)
[2022-04-09] MEDS: OCTREOTIDE ACETATE 500 MCG in SODIUM CHL 0.9% 99 ML IV SCH ×2 (02:54→22:06)
[2022-04-09 04:05] LABS: Basophils # (auto) 0 10 ^3/uL (0-0.2); Basophils % (auto) 0.5 % (0.0-2.0); Eosinophils # (auto) 0.1 10 ^3/uL (0-0.8); Eosinophils % (auto) 2.4 % (0.0-7.0); Hematocrit 27.2 % (41.0-53.0); Hemoglobin 9.1 g/dL (13.5-17.5); Lymphocytes # (auto) 0.5 10 ^3/uL (0.4-5.4); Lymphocytes % (auto) 11.8 % (10.0-50.0); Mean Corpuscular Hemoglobin 29.8 pg (28.0-32.0); Mean Corpuscular Hgb Conc. 33.5 g/dL (32.0-36.0); Mean Corpuscular Volume 88.9 fL (80.0-100.0); Monocytes # (auto) 0.4 10 ^3/uL (0-1.3); Neutrophils # (auto) 3.4 10 ^3/uL (1.6-8.6); Neutrophils % (auto) 76.3 % (37.0-80.0); Nucleated Red Blood Cells % 0.8 %; Red Blood Cells 3.05 10^6/uL (4.5-5.90); Red Cell Distribution Width 16.6 % (11.8-14.3); White Blood Cell 4.5 10^3/uL (4.4-10.8)
[2022-04-09 04:37] LABS: Potassium 3.4 mmol/L (3.5-5.1)
[2022-04-09 04:49] LABS: Albumin 1.5 g/dL (3.4-5.0); BUN/Creatinine Ratio 20.6; Bilirubin, Total 0.6 mg/dL (0.2-1.0); Calcium 6.9 mg/dL (8.5-10.1); Magnesium 1.5 mg/dL (1.6-2.6); Phosphorus 2.3 mg/dL (2.5-4.90); Total Protein 4.6 g/dL (6.4-8.2)
[2022-04-09] MEDS: InsuLIN REG 1unit/0.01ml Soln (100units/ml) SC SCH ×5 (06:00→23:28)
[2022-04-09] MEDS: SUCRALFATE 1 GM/10 ML ORAL SUSP PO SCH ×4 (06:09→22:16)
[2022-04-09] MEDS: PANTOPRAZOLE 40 MG/10 ML VIAL INJ IV SCH ×2 (10:20→22:08)
[2022-04-09] MEDS: SODIUM CHLOR 0.9% PF (SALINE LOCK) 10ML VIAL/SYR IV SCH ×2 (10:20→22:09)
[2022-04-09] MEDS: AMOXICILLIN TRIHYDRATE 250 MG CAP PO SCH ×2 (10:21→22:16)
[2022-04-09] MEDS: SODIUM BICARBONATE 650 MG TAB PO SCH ×2 (10:21→22:16)
[2022-04-09] MEDS: CLARITHROMYCIN 500 MG TAB PO SCH ×2 (10:22→22:17)
[2022-04-09] MEDS: amLODIPine BESYLATE 5 MG TAB PO SCH (10:22)
[2022-04-09] MEDS ORDERED: MAGNESIUM SULFATE 1GM/100ML 100 ML IV ONE (11:30)
[2022-04-09] MEDS: POTASSIUM CHL 20MEQ/100ML 100 ML IV SCH ×2 (13:20→15:33)
[2022-04-09] MEDS: SODIUM FERR GLUC 62.5MG/5ML 125 MG in SODIUM CHL 0.9% 100 ML IV SCH (14:08)
[2022-04-09] MEDS ORDERED: SODIUM PHOSP 20MEQ(15MMOL) IN NS 100 ML IV ONE (15:00)
[2022-04-09] MEDS ORDERED: FUROSEMIDE 40 MG/4 ML VIAL IV ONE (18:30)
[2022-04-09] MEDS: TAMSULOSIN HYDROCHLORIDE 0.4 MG CAP PO SCH (19:04)
[2022-04-09] MEDS: AMINO ACID INFUSION IN D10W 1,000 ML IV SCH (20:13)
[2022-04-10 05:00] VITALS: BP 126/35
[2022-04-10] MEDS: InsuLIN REG 1unit/0.01ml Soln (100units/ml) SC SCH ×3 (05:18→18:00)
[2022-04-10] MEDS: ACCU-CHEK COMFORT CURVE STRIP VI SCH ×4 (05:18→18:17)
[2022-04-10] MEDS: SUCRALFATE 1 GM/10 ML ORAL SUSP PO SCH ×4 (06:06→21:50)
[2022-04-10 06:33] LABS: Potassium 3.8 mmol/L (3.5-5.1)
[2022-04-10 06:39] LABS: Albumin 1.5 g/dL (3.4-5.0); BUN/Creatinine Ratio 21.5; Calcium 6.8 mg/dL (8.5-10.1); Magnesium 1.8 mg/dL (1.6-2.6)
[2022-04-10 06:42] LABS: Bilirubin, Total 0.6 mg/dL (0.2-1.0); Phosphorus 2.3 mg/dL (2.5-4.90); Total Protein 4.7 g/dL (6.4-8.2)
[2022-04-10] MEDS: OCTREOTIDE ACETATE 500 MCG in SODIUM CHL 0.9% 99 ML IV SCH ×2 (07:00→18:48)
[2022-04-10 07:54] LABS: Basophils # (auto) 0 10 ^3/uL (0-0.2); Basophils % (auto) 0.2 % (0.0-2.0); Eosinophils # (auto) 0 10 ^3/uL (0-0.8); Hematocrit 27.1 % (41.0-53.0); Hemoglobin 9.3 g/dL (13.5-17.5); Lymphocytes # (auto) 0.5 10 ^3/uL (0.4-5.4); Lymphocytes % (auto) 10.1 % (10.0-50.0); Mean Corpuscular Hemoglobin 30.5 pg (28.0-32.0); Mean Corpuscular Hgb Conc. 34.2 g/dL (32.0-36.0); Mean Corpuscular Volume 89.2 fL (80.0-100.0); Monocytes # (auto) 0.3 10 ^3/uL (0-1.3); Monocytes % (auto) 6.7 % (0.0-12.0); Neutrophils # (auto) 4.1 10 ^3/uL (1.6-8.6); Nucleated Red Blood Cells % 0.3 %; Red Blood Cells 3.04 10^6/uL (4.5-5.90); Red Cell Distribution Width 16.9 % (11.8-14.3)
[2022-04-10] MEDS: AMOXICILLIN TRIHYDRATE 250 MG CAP PO SCH ×2 (08:37→21:49)
[2022-04-10] MEDS: SODIUM BICARBONATE 650 MG TAB PO SCH ×2 (08:37→21:50)
[2022-04-10] MEDS: PANTOPRAZOLE 40 MG/10 ML VIAL INJ IV SCH ×2 (08:37→21:49)
[2022-04-10] MEDS: amLODIPine BESYLATE 5 MG TAB PO SCH (08:38)
[2022-04-10 09:00] VITALS: BP 132/60
[2022-04-10] MEDS: ACETAMINOPHEN 500 MG TAB PO PRN (10:30)
[2022-04-10] MEDS ORDERED: SODIUM PHOSPHATES 20 MEQ in SODIUM CHL 0.9% 100 ML IV ONE (11:00)
[2022-04-10] MEDS: SODIUM CHLOR 0.9% PF (SALINE LOCK) 10ML VIAL/SYR IV SCH ×2 (11:23→21:49)
[2022-04-10 12:56] VITALS: BP 112/51
[2022-04-10] MEDS: AMINO ACID INFUSION IN D10W 1,000 ML IV SCH (16:28)
[2022-04-10 17:00] VITALS: BP 107/51
[2022-04-10] MEDS: SODIUM FERR GLUC 62.5MG/5ML 125 MG in SODIUM CHL 0.9% 100 ML IV SCH (17:42)
[2022-04-10] MEDS: TAMSULOSIN HYDROCHLORIDE 0.4 MG CAP PO SCH (18:16)
[2022-04-10] MEDS: FUROSEMIDE 40 MG/4 ML VIAL IV ONE ×2 (21:15→21:46)
[2022-04-10] MEDS ORDERED: FUROSEMIDE 40 MG/4 ML VIAL IV ONE (21:30)
[2022-04-10 22:00] VITALS: BP 116/46
[2022-04-11] MEDS: InsuLIN REG 1unit/0.01ml Soln (100units/ml) SC SCH ×4 (00:03→18:00)
[2022-04-11] MEDS: AMINO ACID INFUSION IN D10W 1,000 ML IV SCH ×3 (04:39→23:32)
[2022-04-11] MEDS: OCTREOTIDE ACETATE 500 MCG in SODIUM CHL 0.9% 99 ML IV SCH ×3 (04:40→19:15)
[2022-04-11 05:00] VITALS: BP 115/51
[2022-04-11] MEDS: ACCU-CHEK COMFORT CURVE STRIP VI SCH ×4 (05:29→18:15)
[2022-04-11] MEDS: SUCRALFATE 1 GM/10 ML ORAL SUSP PO SCH ×4 (06:19→22:13)
[2022-04-11 09:00] VITALS: BP 111/42
[2022-04-11] MEDS: amLODIPine BESYLATE 5 MG TAB PO SCH (10:00)
[2022-04-11] MEDS: SODIUM CHLOR 0.9% PF (SALINE LOCK) 10ML VIAL/SYR IV SCH ×2 (10:13→21:33)
[2022-04-11] MEDS ORDERED: FUROSEMIDE 20 MG/2 ML VIAL IV ONE (10:15)
[2022-04-11] MEDS ORDERED: IPRATROPIUM BROM 0.5 MG/2.5ML INH SOL NEB PRN (10:15)
[2022-04-11] MEDS ORDERED: ALBUTEROL SULF 2.5 MG/0.5ML(0.5%) NEB SOLN NEB PRN (10:15)
[2022-04-11 11:30] LABS: Basophils # (auto) 0 10 ^3/uL (0-0.2); Eosinophils # (auto) 0 10 ^3/uL (0-0.8); Hemoglobin 7.5 g/dL (13.5-17.5); Monocytes # (auto) 0.3 10 ^3/uL (0-1.3); Nucleated Red Blood Cells % 0.1 %; White Blood Cell 7.6 10^3/uL (4.4-10.8)
[2022-04-11 11:31] LABS: Basophils % (auto) 0.4 % (0.0-2.0); Eosinophils % (auto) 0.1 % (0.0-7.0); Hematocrit 23.4 % (41.0-53.0); Lymphocytes # (auto) 0.4 10 ^3/uL (0.4-5.4); Lymphocytes % (auto) 4.8 % (10.0-50.0); Mean Corpuscular Hemoglobin 29.7 pg (28.0-32.0); Mean Corpuscular Volume 92.8 fL (80.0-100.0); Monocytes % (auto) 3.4 % (0.0-12.0); Neutrophils % (auto) 91.3 % (37.0-80.0); Red Blood Cells 2.52 10^6/uL (4.5-5.90); Red Cell Distribution Width 17.3 % (11.8-14.3)
[2022-04-11 11:45] LABS: Albumin 1.2 g/dL (3.4-5.0); Calcium 6.1 mg/dL (8.5-10.1); Magnesium 1.6 mg/dL (1.6-2.6); Potassium 3.1 mmol/L (3.5-5.1)
[2022-04-11 11:53] LABS: BUN/Creatinine Ratio 20.8; Bilirubin, Total 0.4 mg/dL (0.2-1.0); Total Protein 4.1 g/dL (6.4-8.2)
[2022-04-11] MEDS: SODIUM FERR GLUC 62.5MG/5ML 125 MG in SODIUM CHL 0.9% 100 ML IV SCH (12:00)
[2022-04-11] MEDS: AMOXICILLIN TRIHYDRATE 250 MG CAP PO SCH ×2 (12:21→22:13)
[2022-04-11] MEDS: PANTOPRAZOLE 40 MG/10 ML VIAL INJ IV SCH ×2 (12:22→21:33)
[2022-04-11] MEDS: SODIUM BICARBONATE 650 MG TAB PO SCH ×2 (12:22→22:13)
[2022-04-11 13:00] VITALS: BP 128/35
[2022-04-11] MEDS ORDERED: SODIUM CHL 3% 500 ML IV ONE (13:45)
[2022-04-11] MEDS ORDERED: POTASSIUM PHOSP 22MEQ(15MMOLE) in NS 100 ML IV ONE (15:30)
[2022-04-11] MEDS ORDERED: MAGNESIUM SULFATE 1GM/100ML 100 ML IV ONE (15:45)
[2022-04-11 17:00] VITALS: BP 88/84
[2022-04-11] MEDS: TAMSULOSIN HYDROCHLORIDE 0.4 MG CAP PO SCH (18:34)
[2022-04-11] MEDS ORDERED: DEXTROSE (50%) 50ML SYRG IV ONE (19:45)
[2022-04-11 22:53] VITALS: BP 106/47
[2022-04-12] VITALS (8 sets, daily range): BP systolic 94–136; BP diastolic 40–56
[2022-04-12] MEDS: ACCU-CHEK COMFORT CURVE STRIP VI SCH ×3 (01:01→11:55)
[2022-04-12] MEDS: InsuLIN REG 1unit/0.01ml Soln (100units/ml) SC SCH ×3 (06:07→12:00)
[2022-04-12] MEDS: SUCRALFATE 1 GM/10 ML ORAL SUSP PO SCH ×4 (06:18→22:00)
[2022-04-12] MEDS: ACETAMINOPHEN 500 MG TAB PO PRN ×2 (06:20→13:35)
[2022-04-12 09:04] LABS: Basophils # (auto) 0 10 ^3/uL (0-0.2); Eosinophils # (auto) 0 10 ^3/uL (0-0.8); Eosinophils % (auto) 0.1 % (0.0-7.0); Hemoglobin 8.4 g/dL (13.5-17.5); Mean Corpuscular Volume 92.3 fL (80.0-100.0); Monocytes # (auto) 0.3 10 ^3/uL (0-1.3)
[2022-04-12 09:06] LABS: Basophils % (auto) 0.2 % (0.0-2.0); Hematocrit 25.7 % (41.0-53.0); Lymphocytes # (auto) 0.4 10 ^3/uL (0.4-5.4); Lymphocytes % (auto) 4.1 % (10.0-50.0); Mean Corpuscular Hemoglobin 30.1 pg (28.0-32.0); Mean Corpuscular Hgb Conc. 32.6 g/dL (32.0-36.0); Monocytes % (auto) 3.3 % (0.0-12.0); Neutrophils # (auto) 8.3 10 ^3/uL (1.6-8.6); Neutrophils % (auto) 92.3 % (37.0-80.0); Nucleated Red Blood Cells % 0.2 %; Red Blood Cells 2.78 10^6/uL (4.5-5.90); Red Cell Distribution Width 17.1 % (11.8-14.3); White Blood Cell 8.9 10^3/uL (4.4-10.8)
[2022-04-12 09:26] LABS: Albumin 1.4 g/dL (3.4-5.0); Calcium 7.1 mg/dL (8.5-10.1); Magnesium 1.9 mg/dL (1.6-2.6); Potassium 3.6 mmol/L (3.5-5.1)
[2022-04-12 09:29] LABS: BUN/Creatinine Ratio 22.6; Bilirubin, Total 0.3 mg/dL (0.2-1.0); Total Protein 4.9 g/dL (6.4-8.2)
[2022-04-12] MEDS: SODIUM BICARBONATE 650 MG TAB PO SCH ×2 (10:00→22:00)
[2022-04-12] MEDS: amLODIPine BESYLATE 5 MG TAB PO SCH (10:00)
[2022-04-12] MEDS: AMOXICILLIN TRIHYDRATE 250 MG CAP PO SCH ×2 (10:00→22:00)
[2022-04-12] MEDS: SODIUM CHLOR 0.9% PF (SALINE LOCK) 10ML VIAL/SYR IV SCH ×2 (10:19→23:21)
[2022-04-12] MEDS: PANTOPRAZOLE 40 MG/10 ML VIAL INJ IV SCH ×2 (10:19→23:29)
[2022-04-12] MEDS ORDERED: BUMETANIDE 2.5mg/10ml (0.25 mg/ml) INJ IV ONE (10:45)
[2022-04-12] MEDS ORDERED: BUMETANIDE INJECTION 12.5 MG in GIVE UN-DILUTED 0 ML IV SCH (10:45)
[2022-04-12] MEDS ORDERED: FUROSEMIDE 40 MG/4 ML VIAL IV ONE (10:45)
[2022-04-12] MEDS: AMINO ACID INFUSION IN D10W 1,000 ML IV SCH (14:53)
[2022-04-12] MEDS: TAMSULOSIN HYDROCHLORIDE 0.4 MG CAP PO SCH (18:00)
[2022-04-13 05:00] VITALS: BP 107/43
[2022-04-13 05:28] LABS: Potassium 3.8 mmol/L (3.5-5.1)
[2022-04-13 05:33] LABS: Albumin 1.4 g/dL (3.4-5.0); BUN/Creatinine Ratio 26.3; Calcium 6.8 mg/dL (8.5-10.1); Magnesium 1.9 mg/dL (1.6-2.6); Phosphorus 3.4 mg/dL (2.5-4.90)
[2022-04-13] MEDS: SUCRALFATE 1 GM/10 ML ORAL SUSP PO SCH ×4 (06:34→22:00)
[2022-04-13 09:00] VITALS: BP 101/48
[2022-04-13] MEDS ORDERED: SODIUM BICARBONATE 8.4 % INJ 50ML VIAL IV ONE (09:00)
[2022-04-13] MEDS: SODIUM BICARBONATE 650 MG TAB PO SCH ×2 (10:00→22:00)
[2022-04-13] MEDS ORDERED: FUROSEMIDE 40 MG/4 ML VIAL IV SCH (10:00)
[2022-04-13] MEDS: AMOXICILLIN TRIHYDRATE 250 MG CAP PO SCH (10:00)
[2022-04-13] MEDS: amLODIPine BESYLATE 5 MG TAB PO SCH (10:00)
[2022-04-13] MEDS: PANTOPRAZOLE 40 MG/10 ML VIAL INJ IV SCH ×2 (10:24→22:58)
[2022-04-13] MEDS: BUMETANIDE INJECTION 12.5 MG in GIVE UN-DILUTED 0 ML IV SCH (10:25)
[2022-04-13] MEDS: SODIUM CHLOR 0.9% PF (SALINE LOCK) 10ML VIAL/SYR IV SCH ×2 (10:26→22:58)
[2022-04-13] MEDS: ALBUMIN 25% 50 ML IV SCH ×2 (10:26→17:08)
[2022-04-13] MEDS: Ensure Enlive Chocolate 8oz Bottle PO SCH ×3 (12:00→22:00)
[2022-04-13 13:00] VITALS: BP 99/43
[2022-04-13 16:45] VITALS: BP 98/34
[2022-04-13] MEDS ORDERED: ACETAMINOPHEN 650 MG RECT SUPP PR PRN ×2 (17:00→17:15)
[2022-04-13] MEDS: TAMSULOSIN HYDROCHLORIDE 0.4 MG CAP PO SCH (17:08)
[2022-04-13] MEDS ORDERED: ACETAMINOPHEN 120 MG RECT SUPP PR PRN (17:30)
[2022-04-13 22:00] VITALS: BP 115/34
[2022-04-14] MEDS: BUMETANIDE INJECTION 12.5 MG in GIVE UN-DILUTED 0 ML IV SCH ×2 (00:16→09:46)
[2022-04-14] MEDS: ALBUMIN 25% 50 ML IV SCH (00:39)
[2022-04-14 05:00] VITALS: BP 160/43
[2022-04-14] MEDS: Ensure Enlive Chocolate 8oz Bottle PO SCH ×4 (05:59→21:22)
[2022-04-14] MEDS: SUCRALFATE 1 GM/10 ML ORAL SUSP PO SCH ×4 (06:00→21:21)
[2022-04-14 09:00] VITALS: BP 108/41
[2022-04-14] MEDS: SODIUM CHLOR 0.9% PF (SALINE LOCK) 10ML VIAL/SYR IV SCH ×2 (09:45→21:21)
[2022-04-14] MEDS: SODIUM BICARBONATE 650 MG TAB PO SCH (09:45)
[2022-04-14] MEDS: PANTOPRAZOLE 40 MG/10 ML VIAL INJ IV SCH ×2 (09:45→21:21)
[2022-04-14] MEDS: amLODIPine BESYLATE 5 MG TAB PO SCH (09:45)
[2022-04-14 13:02] VITALS: BP_SYST 116
[2022-04-14] MEDS: ALBUMIN 25% 100 ML IV SCH ×2 (13:30→18:34)
[2022-04-14 16:52] VITALS: BP 93/41
[2022-04-14 17:06] VITALS: BP 93/41
[2022-04-14] MEDS: TAMSULOSIN HYDROCHLORIDE 0.4 MG CAP PO SCH (17:30)
[2022-04-14 22:00] VITALS: BP 102/33
[2022-04-15] VITALS (78 sets, daily range): BP systolic 73–151; BP diastolic 12–76
[2022-04-15] MEDS: ALBUMIN 25% 100 ML IV SCH (02:22)
[2022-04-15] MEDS ORDERED: NOREPINEPHRINE 8 MG/250ML KIT 250 ML IV ONE (03:38)
[2022-04-15] MEDS ORDERED: NOREPINEPHRINE 8 MG/250ML KIT 250 ML IV SCH ×2 (03:45→04:15)
[2022-04-15] MEDS ORDERED: DOPamine 1600MCG/ML D5W 250 ML IV ONE (03:47)
[2022-04-15] MEDS ORDERED: SODIUM BICARBONATE 8.4% INJ 50ML SYRINGE ONE (04:06)
[2022-04-15] MEDS ORDERED: SODIUM BICARBONATE 8.4 % INJ 50ML VIAL IV ONE ×2 (04:15→04:50)
[2022-04-15] MEDS ORDERED: PHENYLEPHRINE IV 250 ML IV ONE (05:03)
[2022-04-15] MEDS: SODIUM BICARBONATE 50ML VIAL 150 ML in D5W 5% 1,000 ML IV SCH ×2 (05:16→17:23)
[2022-04-15] MEDS ORDERED: PHENYLEPHRINE IV 250 ML IV SCH (05:30)
[2022-04-15] MEDS ORDERED: EPINEPHrine HCL 250 ML IV ONE (05:31)
[2022-04-15] MEDS ORDERED: VASOPRESSIN 20 UNIT/ML ONE (05:50)
[2022-04-15] MEDS: VASOPRESSIN 50 UNITS in D5W 5% 247.5 ML IV SCH (06:06)
[2022-04-15] MEDS: SUCRALFATE 1 GM/10 ML ORAL SUSP PO SCH ×3 (07:00→17:00)
[2022-04-15] MEDS: DOPamine 1600MCG/ML D5W 250 ML IV SCH ×6 (07:51→23:47)
[2022-04-15] MEDS ORDERED: NOREPINEPHRINE BITARTRATE 32 MG in SODIUM CHL 0.9% 218 ML IV SCH (08:30)
[2022-04-15] MEDS ORDERED: EPINEPHrine HCL INJECTION 16 MG in D5W 5% 234 ML IV SCH (08:30)
[2022-04-15] MEDS: Ensure Enlive Chocolate 8oz Bottle PO SCH ×4 (09:41→21:22)
[2022-04-15] MEDS: SODIUM CHLOR 0.9% PF (SALINE LOCK) 10ML VIAL/SYR IV SCH ×2 (09:42→21:22)
[2022-04-15] MEDS: amLODIPine BESYLATE 5 MG TAB PO SCH (09:42)
[2022-04-15] MEDS: PANTOPRAZOLE 40 MG/10 ML VIAL INJ IV SCH ×2 (09:43→21:22)
[2022-04-15 10:31] LABS: Basophils # (auto) 0.1 10 ^3/uL (0-0.2); Eosinophils # (auto) 0 10 ^3/uL (0-0.8); Hemoglobin 7.5 g/dL (13.5-17.5); Lymphocytes # (auto) 0.5 10 ^3/uL (0.4-5.4); Mean Corpuscular Hgb Conc. 31.5 g/dL (32.0-36.0); Mean Corpuscular Volume 93.4 fL (80.0-100.0); Monocytes # (auto) 0.2 10 ^3/uL (0-1.3)
[2022-04-15 10:32] LABS: Eosinophils % (auto) 0.1 % (0.0-7.0); Hematocrit 23.9 % (41.0-53.0); Lymphocytes % (auto) 3.9 % (10.0-50.0); Mean Corpuscular Hemoglobin 29.4 pg (28.0-32.0); Monocytes % (auto) 1.8 % (0.0-12.0); Neutrophils # (auto) 12.9 10 ^3/uL (1.6-8.6); Neutrophils % (auto) 93.2 % (37.0-80.0); Red Blood Cells 2.56 10^6/uL (4.5-5.90); Red Cell Distribution Width 17.5 % (11.8-14.3); White Blood Cell 13.8 10^3/uL (4.4-10.8)
[2022-04-15 10:53] LABS: Albumin 2.7 g/dL (3.4-5.0); Anion Gap 12 (5-15); Calcium 7.5 mg/dL (8.5-10.1); Carbon Dioxide 16 mmol/L (21-32); Chloride 107 mmol/L (98-107); Glucose 190 mg/dL (74-106); Magnesium 2.1 mg/dL (1.6-2.6); Potassium 3.6 mmol/L (3.5-5.1); Sodium 135 mmol/L (136-145)
[2022-04-15 10:56] LABS: Alanine Aminotransferase < 6 U/L (16-61); Alkaline Phosphatase 176 U/L (45-117); Aspartate Aminotransferase 10 U/L (15-37); BUN/Creatinine Ratio 21.3; GFR African American 19 mL/min; GFR Non-African American 16 mL/min; Total Protein 5.9 g/dL (6.4-8.2)
[2022-04-15] MEDS: PHENYLEPHRINE INJ 80 MG in SODIUM CHL 0.9% 242 ML IV SCH ×2 (11:14→20:08)
[2022-04-15 11:27] LABS: Blood Urea Nitrogen 83 mg/dL (7-18)
[2022-04-15] MEDS: HYDROCORTISONE SOD SUCC 100 MG/2ML INJ VIAL IV SCH ×2 (17:22→21:22)
[2022-04-15] MEDS: TAMSULOSIN HYDROCHLORIDE 0.4 MG CAP PO SCH (17:23)
[2022-04-16] VITALS (50 sets, daily range): BP systolic 76–166; BP diastolic 16–77
[2022-04-16] MEDS: DOPamine 1600MCG/ML D5W 250 ML IV SCH (02:42)
[2022-04-16] MEDS: PHENYLEPHRINE INJ 80 MG in SODIUM CHL 0.9% 242 ML IV SCH (02:42)
[2022-04-16] MEDS: SODIUM BICARBONATE 50ML VIAL 150 ML in D5W 5% 1,000 ML IV SCH (03:23)
[2022-04-16] MEDS: Ensure Enlive Chocolate 8oz Bottle PO SCH (06:00)
[2022-04-16] MEDS: VASOPRESSIN 50 UNITS in D5W 5% 247.5 ML IV SCH (06:00)
[2022-04-16] MEDS: HYDROCORTISONE SOD SUCC 100 MG/2ML INJ VIAL IV SCH (06:10)
[2022-04-16] MEDS ORDERED: MORPHINE SULFATE INJ 2 MG/ml SYRG IV PRN (08:00)
[2022-04-16] MEDS ORDERED: LORazepam 2MG/ML-1ML VIAL IV PRN (08:00)
== END 2022-04-16 16:36 | DRG 377 ==
LOC: EDBD 14:14 → ER 14:14 → TELE 19:36 → TELE-CENTR 03-15 03:27 → DOU IN ICU 04-01 09:17 → ICU CENTRL 04-03 17:53 → ICU WEST 04-05 09:30 → TELE-EAST 04-09 11:11 → ICU WEST 04-15 04:25
PROVIDERS: ADMIT Registered Nurse; ATTEND Family Medicine
PROC: 30233N1 Transfusion of Nonautologous Red Blood Cells into Peripheral Vein, Percutaneous Approach (ICD-10-PCS; principal; 2022-03-14)
PROC: 0DB98ZX Excision of Duodenum, Via Natural or Artificial Opening Endoscopic, Diagnostic (ICD-10-PCS; 2022-03-16)
PROC: 0DB68ZX Excision of Stomach, Via Natural or Artificial Opening Endoscopic, Diagnostic (ICD-10-PCS; 2022-03-16)
PROC: 30233K1 Transfusion of Nonautologous Frozen Plasma into Peripheral Vein, Percutaneous Approach (ICD-10-PCS; 2022-03-21)
PROC: 0DB68ZX Excision of Stomach, Via Natural or Artificial Opening Endoscopic, Diagnostic (ICD-10-PCS; 2022-03-25)
PROC: 0DB68ZX Excision of Stomach, Via Natural or Artificial Opening Endoscopic, Diagnostic (ICD-10-PCS; 2022-03-30)
PROC: 05HB33Z Insertion of Infusion Device into Right Basilic Vein, Percutaneous Approach (ICD-10-PCS; 2022-03-31)
PROC: B54MZZA Ultrasonography of Right Upper Extremity Veins, Guidance (ICD-10-PCS; 2022-03-31)
PROC: 30233R1 Transfusion of Nonautologous Platelets into Peripheral Vein, Percutaneous Approach (ICD-10-PCS; 2022-04-01)
PROC: 5A09357 Assistance with Respiratory Ventilation, Less than 24 Consecutive Hours, Continuous Positive Airway Pressure (ICD-10-PCS; 2022-04-15)
DX: K29.71 Gastritis, unspecified, with bleeding (principal); E43 Unspecified severe protein-calorie malnutrition; N17.0 Acute kidney failure with tubular necrosis; J96.01 Acute respiratory failure with hypoxia; J96.02 Acute respiratory failure with hypercapnia; D62 Acute posthemorrhagic anemia; J98.11 Atelectasis; L03.114 Cellulitis of left upper limb; Z68.41 Body mass index [BMI] 40.0-44.9, adult; Z66 Do not resuscitate; Z20.822 Contact with and (suspected) exposure to COVID-19; R57.1 Hypovolemic shock; K25.4 Chronic or unspecified gastric ulcer with hemorrhage; R31.9 Hematuria, unspecified; E87.5 Hyperkalemia; N18.31 Chronic kidney disease, stage 3a; E11.22 Type 2 diabetes mellitus with diabetic chronic kidney disease; I12.9 Hypertensive chronic kidney disease with stage 1 through stage 4 chronic kidney disease, or unspecified chronic kidney disease; E11.65 Type 2 diabetes mellitus with hyperglycemia; E78.00 Pure hypercholesterolemia, unspecified; B96.81 Helicobacter pylori [H. pylori] as the cause of diseases classified elsewhere; K29.81 Duodenitis with bleeding; E11.51 Type 2 diabetes mellitus with diabetic peripheral angiopathy without gangrene; E66.01 Morbid (severe) obesity due to excess calories; E87.6 Hypokalemia; K26.4 Chronic or unspecified duodenal ulcer with hemorrhage; K44.9 Diaphragmatic hernia without obstruction or gangrene; N40.0 Benign prostatic hyperplasia without lower urinary tract symptoms; Z51.5 Encounter for palliative care; Z83.3 Family history of diabetes mellitus; Z79.02 Long term (current) use of antithrombotics/antiplatelets; Z68.28 Body mass index [BMI] 28.0-28.9, adult; Z98.61 Coronary angioplasty status; Z82.49 Family history of ischemic heart disease and other diseases of the circulatory system; Z80.0 Family history of malignant neoplasm of digestive organs; Z79.4 Long term (current) use of insulin
CPT/HCPCS: 36415; 36569; 36600; 43239; 70450; 71045; 74176; 76775; 78278; 80048; 80053; 80061; 80069; 80076; 81001; 82270; 82805; 82947; 82962; 83036; 83605; 83735; 83880; 84100; 84478; 84484; 85007; 85014; 85018; 85025; 85027; 85246; 85379; 85610; 85730; 86850; 86900; 86901; 86920; 87040; 87081; 87086; 93005; 93306; 93886; 93971; 94640; 94660; 96361; 96365; 96367; 96375; 99291; A9560; C9113; G0378; J0171; J0696; J1815; J2001; J2250; J2405; J2543; J2704; J3430; J3480; J3490; J7060; P9047